=== PATIENT | male | born 1960 | race Caucasian/White ===

== ENCOUNTER 2018-02-21 10:07 | Emergency (ER) | payer BC, OTHER ==
[~2018-02-21] VITALS: Ht 182.9 cm; Wt 62.1 kg
[2018-02-21 10:23] VITALS: BP 116/82
[2018-02-21 10:58] LABS: Urine Bacteria NONE SEEN /hpf (None Seen); Urine Blood TRACE /uL (Negative); Urine Mucus FEW (None Seen); Urine WBC 2 /hpf (0 - 3)
[2018-02-21] MEDS ORDERED: DEXAMETHASONE SOD PHOS 10MG/1ML VIAL INJ IM ONE (13:15)
== END 2018-02-21 14:38 | disposition home or self-care (01) ==
LOC: ER 10:07
DX: S39.013A Strain of muscle, fascia and tendon of pelvis, initial encounter (principal); Z88.6 Allergy status to analgesic agent; X58.XXXA Exposure to other specified factors, initial encounter; Y93.89 Activity, other specified; Y99.8 Other external cause status; Y92.89 Other specified places as the place of occurrence of the external cause
CPT/HCPCS: 76870; 81001; 96372; 99285; J1100

== ENCOUNTER 2019-06-29 00:52 | Emergency (ER) | payer BC ==
[~2019-06-29] VITALS: Ht 182.9 cm; Wt 63.5 kg
[2019-06-29 01:31] LABS: Basophils # (auto) 0.1 uL; Basophils % (auto) 0.9 % (0.0-2.0); Eosinophils # (auto) 0.3 uL; Eosinophils % (auto) 2.6 % (0.0-7.0); Hematocrit 50.3 % (41.0-53.0); Hemoglobin 17.4 g/dL (13.5-17.5); Lymphocytes # (auto) 1.6 uL; Lymphocytes % (auto) 15.7 % (10.0-50.0); Mean Corpuscular Hemoglobin 33.5 pg (28.0-32.0); Mean Corpuscular Hgb Conc. 34.6 g/dL (32.0-36.0); Mean Corpuscular Volume 96.9 fL (80.0-100.0); Monocytes # (auto) 0.9 uL; Monocytes % (auto) 8.3 % (0.0-12.0); Neutrophils # (auto) 7.5 uL; Neutrophils % (auto) 72.5 % (37.0-80.0); Platelet Count (auto) 205 10^3/uL (140-450); Red Blood Cells 5.19 10^6/uL (4.5-5.90); Red Cell Distribution Width 13.3 % (11.8-14.3); White Blood Cell 10.3 10^3/uL (4.4-10.8)
[2019-06-29 01:46] LABS: INR 0.98 (0.9-1.15)
[2019-06-29 01:56] LABS: Albumin 3.5 g/dL (3.4-5.0); Anion Gap 6 (5-15); Blood Urea Nitrogen 22 mg/dL (7-18); Carbon Dioxide 25 mmol/L (21-32); Chloride 106 mmol/L (98-107); Glucose 97 mg/dL (74-106); Potassium 4.5 mmol/L (3.5-5.1); Sodium 137 mmol/L (136-145)
[2019-06-29 01:58] LABS: Alanine Aminotransferase 30 U/L (16-61); Aspartate Aminotransferase 23 U/L (15-37); GFR African American 93 mL/min; GFR Non-African American 77 mL/min
[2019-06-29 02:13] LABS: Alkaline Phosphatase 127 U/L (45-117); Bilirubin, Total 0.3 mg/dL (0.2-1.0); Total Protein 7.5 g/dL (6.4-8.2)
[2019-06-29] MEDS ORDERED: HYDROcodone-ACET 5/325MG TAB PO ONE (02:15)
[2019-06-29 03:20] VITALS: BP 110/70
== END 2019-06-29 03:19 | disposition home or self-care (01) ==
LOC: EDBD 00:52 → ER 00:55
DX: S20.211A Contusion of right front wall of thorax, initial encounter (principal); J44.9 Chronic obstructive pulmonary disease, unspecified; Z88.6 Allergy status to analgesic agent; X50.1XXA Overexertion from prolonged static or awkward postures, initial encounter; Y93.89 Activity, other specified; Y99.8 Other external cause status; Y92.89 Other specified places as the place of occurrence of the external cause
CPT/HCPCS: 36415; 71045; 80053; 83880; 84484; 85025; 85610; 85730; 93005

== ENCOUNTER 2024-06-20 17:33 | Inpatient (IN) | payer BC ==
[~2024-06-20] VITALS: Ht 180.3 cm; Wt 58.6 kg
--- NOTE | 2024-06-20 17:46 | ED.PDOC ---
SOB-HPI HPI Comments 63 year old male presents to the ED with a chief complaint of shortness of breath onset 1 day. Patient states he has been experiencing shortness of breath, cough, chest burning "discomfort", fever for the past day with no relief of symptoms. PMHx of COPD. Denies any headache, blurry vision, nausea, vomiting, diarrhea, abdominal pain. No other symptoms or modifying factors present at this time. Time Seen by MD: 17:40 Primary Care Provider: [facility] G[facility] Marmolejo notes: Medications, Allergies Information Source: Patient Mode of Arrival: Ambulatory Severity: Moderate Timing: Days Duration: Since onset Context: At Rest PE Risk Factors: None History of: COPD Prehospital treatment: None Modifying Factors: Nothing Associated Signs and Symptoms: Fever, Cough Radiation: No Radiation Past Medical History PAST MEDICAL HISTORY: COPD Surgical History: Denies all surgeries Family History Family History: Reviewed,noncontributory to illness Social History Smoker: Cigarettes Alcohol: Denies ETOH Use Drugs: Denies Drug Use Lives In: Home Constitutional: reports: fever; denies: chills, diaphoresis, fatigue, malaise, sweats, weakness, others EENTM: denies: blurred vision, double vision, ear bleeding, ear discharge, ear drainage, ear pain, ear ringing, eye pain, eye redness, hearing loss, mouth pain, mouth swelling, nasal discharge, nose bleeding, nose congestion, nose pain, photophobia, tearing, throat pain, throat swelling, voice changes, others Respiratory: reports: cough, shortness of breath; denies: hemoptysis, orthopnea, SOB at rest, SOB with excertion, stridor, wheezing, others Cardiovascular: reports: chest pain; denies: dizzy spells, diaphoresis, Dyspnea on exertion, edema, irregular heart beat, left arm pain, lightheadedness, palpitations, PND, syncope, others Gastrointestinal: denies: abdomen distended, abdominal pain, blood streaked bowels, constipated, diarrhea, dysphagia, difficulty swallowing, hematemesis, melena, nausea, poor appetite, poor fluid intake, rectal bleeding, rectal pain, vomiting, others Genitourinary: denies: burning, dysuria, flank pain, frequency, hematuria, incontinence, penile discharge, penile sore, pain, testicle pain, testicle swelling, urgency, others Neurological: denies: dizziness, fainting, headache, left sided numbness, left sided weakness, numbness, paresthesia, pre-existing deficit, right sided numbness, right sided weakness, seizure, speech problems, tingling, tremors, weakness, others Musculoskeletal: denies: back pain, gout, joint pain, joint swelling, muscle pain, muscle stiffness, neck pain, others Integumetry: denies: bruises, change in color, change in hair/nails, dryness, laceration, lesions, lumps, rash, wounds, others Allergic/Immunocompromised: denies: Difficulty Healing, Frequent Infections, Hives, Itching, others Hematologic/Lymphatic: denies: anemia, blood clots, easy bleeding, easy bruising, swollen glands, others Endocrine: denies: excessive hunger, excessive sweating, excessive thirst, excessive urination, flushing, intolerance to cold, intolerance to heat, unexplained weight gain, unexplained weight loss, others Psychiatric: denies: anxiety, bipolar disorder, depression, hopeless, panic disorder, schizophrenia, sleepless, suicidal, others All Other Systems: Reviewed and Negative Physical Exam General Appearance: No Apparent Distress, Normal HEENT: Normal ENT Inspection, Pharynx Normal, TMs Normal Neck: Full Range of Motion, Non-Tender, Normal, Normal Inspection Respiratory: Chest Non-Tender, Lungs Clear, No Accessory Muscle Use, No Respiratory Distress, Normal Breath Sounds Cardiovascular: No Edema, No JVD, No Murmur, No Gallop, Normal Peripheral Pulses, Regular Rate/Rhythm Breast Exam: Deferred Gastrointestinal: No Organomegaly, Non Tender, No Pulsatile Mass, Normal Bowel Sounds, Soft Genitalia: Deferred Pelvic: Deferred Rectal: Deferred Extremities: No calf tenderness, Normal capillary refill, Normal inspection, Normal range of motion, Non-tender, No pedal edema Musculoskeletal : Apperance: Normal Neurologic: Alert, client resolution specialist II-XII nml as Tested, No Motor Deficits, Normal Affect, Normal Mood, No Sensory Deficits Cerebellar Function: Normal Reflexes: Normal Skin: Dry, Normal Color, Warm Lymphatic: No Adenopathy EKG EKG : Pulse Rate (adult): 79 [place]: Normal Cardiac Rhythm: NSR Block: None Hypertrophy: None ST: Nonsp Was a procedure done? Was a procedure done?: No Differential Dx Differential Diagnosis: Anxiety, Asthma, Bronchitis, CHF, COPD, Dysrhythmia, Hyperventilation, Myocardial infarction, Panic Attack, Pneumonia, Pneumothorax, Pulmonary Embolism, Respiratory Distress, URI X-Ray, Labs, Meds, VS Vital Signs Date Time Temp Pulse Resp B/P (MAP) Pulse Ox O2 Delivery O2 Flow Rate FiO2 06/20/24 18:52 Room Air* 0 21 06/20/24 18:52 98.6 91 28 144/101 (115) 91 98.6 06/20/24 17:50 96 06/20/24 17:46 99.4 96 20 118/59 (78) 93 Lab Test 06/20/24 19:00 06/20/24 17:53 Range/Units Troponin I High Sensitivity 5 4 </=54 ng/L White Blood Count 6.0 4.4-10.8 10^3/uL Red Blood Count 4.96 4.5-5.90 10^6/uL Hemoglobin 16.2 13.5-17.5 g/dL Hematocrit 48.1 41.0-53.0 % Mean Corpuscular Volume 96.9 80.0-100.0 fL Mean Corpuscular Hemoglobin 32.7 H 28.0-32.0 pg Mean Corpuscular Hemoglobin Concent 33.8 32.0-36.0 g/dL Red Cell Distribution Width 13.6 11.8-14.3 % Platelet Count 159 140-450 10^3/uL Mean Platelet Volume 7.3 6.9-10.8 fL Neutrophils (%) (Auto) 82.4 H 37.0-80.0 % Lymphocytes (%) (Auto) 5.8 L 10.0-50.0 % Monocytes (%) (Auto) 11.5 0.0-12.0 % Eosinophils (%) (Auto) 0.0 0.0-7.0 % Basophils (%) (Auto) 0.3 0.0-2.0 % Neutrophils # (Auto) 5.0 1.6-8.6 10 ^3/uL Lymphocytes # (Auto) 0.4 0.4-5.4 10 ^3/uL Monocytes # (Auto) 0.7 0-1.3 10 ^3/uL Eosinophils # (Auto) 0 0-0.8 10 ^3/uL Basophils # (Auto) 0 0-0.2 10 ^3/uL Nucleated Red Blood Cells 0.0 % Sodium Level 140 136-145 mmol/L Potassium Level 4.5 3.5-5.1 mmol/L Chloride Level 103 98-107 mmol/L Carbon Dioxide Level 27 20-31 mmol/L Anion Gap 10 5-15 Blood Urea Nitrogen 22 9-23 mg/dL Creatinine 0.93 0.700-1.30 mg/dL Glomerular Filtration Rate Calc 92 >90 mL/min BUN/Creatinine Ratio 23.7 H 10.0-20.0 Serum Glucose 101 74-106 mg/dL Calcium Level 9.7 8.7-10.4 mg/dL Time of 1ST Reevaluation: 18:10 Reevaluation 1ST: Unchanged Patient Education/Counseling: Diagnosis, Treatment, Prognosis, Need For Follow Up Family Education/Counseling: Diagnosis, Treatment, Prognosis, Need For Follow Up, No Family Present Additional Information pt has pneumonia, with his copd exacerbation, tobacco dependence and chest pain, which may be unstable angina. he will be admitted for treatment and evaluation of the above Departure 1 Departure Time of Disposition: 20:24 Impression: Primary Impression: Pneumonia Qualified Codes: J18.9 - Pneumonia, unspecified organism Additional Impressions: COPD exacerbation Tobacco abuse Chest pain Qualified Codes: I20.89 - Other forms of angina pectoris Unstable angina Disposition: ADMITTED INPATIENT Admit to: Tele Condition: Stable Discharged With: Self, Relative Critical Care Note Critical Care Time?: Yes (55 min-critical care time only) Critical care comment: due to concerns for deterioration of patient's condition, the care required my highest level of attention and readiness. i assessed the patient's condition, reviewed relevant documents, communicated with medical personnel, ordered the proper tests and treatments, reassessed for results and response to treatments, spoke to family and consultants and formulated a plan of care Stability Stability form required: No Heart Score Heart Score: Heart Score Response (Comments) Value History Moderate Suspicious 1 EKG Repolarization Disturb 1 Age 45-64 1 Risk Factors 1 or 2 risk factors 1 Troponin Normal limit 0 Total 4 I personally scribed for TAVARES DOMINGUEZ MD ([email or web address]) on 06/20/24 at 17:46. Electronically submitted by Tiffanie Turner ([email or web address]). TAVARES DOMINGUEZ MD Jun 20, 2024 17:46
--- NOTE | 2024-06-20 17:52 | ECG ---
[facility] Test Date: 2024-06-20 Test Time: 17:50:57 Pat Name: ANGY CUELLAR Department: ER Room: Gender: M It Architecture Analyst: NUPUR : 1960 Requested By: TAVARES DOMINGUEZ Order Number: [id number] Reading MD: Measurements Intervals [place] Rate: 96 P: 84 IA: 160 QRS: -63 QRSD: 100 T: 77 QT: 336 QTc: 425 Interpretive Statements Sinus rhythm Ventricular premature complex Probable left atrial enlargement Left axis deviation Anterior infarct, old Please click the below link to view image of tracing.
[2024-06-20 18:10] LABS: Basophils # (auto) 0 10 ^3/uL (0-0.2); Basophils % (auto) 0.3 % (0.0-2.0); Eosinophils # (auto) 0 10 ^3/uL (0-0.8); Hematocrit 48.1 % (41.0-53.0); Hemoglobin 16.2 g/dL (13.5-17.5); Lymphocytes # (auto) 0.4 10 ^3/uL (0.4-5.4); Lymphocytes % (auto) 5.8 % (10.0-50.0); Mean Corpuscular Hemoglobin 32.7 pg (28.0-32.0); Mean Corpuscular Hgb Conc. 33.8 g/dL (32.0-36.0); Mean Corpuscular Volume 96.9 fL (80.0-100.0); Monocytes # (auto) 0.7 10 ^3/uL (0-1.3); Monocytes % (auto) 11.5 % (0.0-12.0); Neutrophils % (auto) 82.4 % (37.0-80.0); Platelet Count (auto) 159 10^3/uL (140-450); Red Blood Cells 4.96 10^6/uL (4.5-5.90); Red Cell Distribution Width 13.6 % (11.8-14.3)
[2024-06-20 18:22] LABS: Chloride 103 mmol/L (98-107); Potassium 4.5 mmol/L (3.5-5.1); Sodium 140 mmol/L (136-145)
[2024-06-20 18:23] LABS: Anion Gap 10 (5-15); Carbon Dioxide 27 mmol/L (20-31)
[2024-06-20 18:24] LABS: Calcium 9.7 mg/dL (8.7-10.4)
--- NOTE | 2024-06-20 18:27 | DVH ---
CHEST RADIOGRAPH Indication: cough, sob Technique: Single frontal view of the chest was obtained Comparison: CHEST PORTABLE on DOS: 06/29/19 FINDINGS: Lines and Tubes: None Lungs: Increased bilateral perihilar infiltrates with development of a right lower lobe infiltrate. Pleura: No effusion. No pneumothorax. Cardiomediastinal contours: Unremarkable Bones: No acute osseous abnormality. IMPRESSION: 1. Bilateral perihilar infiltrate and right lower lobe infiltrate.
[2024-06-20 18:28] LABS: Glucose 101 mg/dL (74-106)
[2024-06-20 18:29] LABS: BUN/Creatinine Ratio 23.7 (10.0-20.0); Blood Urea Nitrogen 22 mg/dL (9-23)
[2024-06-20] MEDS: AZITHROMYCIN 500MG/ 250ML 250 ML IV ONE (20:30)
[2024-06-20] MEDS: cefTRIAXone SOD 1,000 MG VL IM ONE (20:30)
[2024-06-20] MEDS: ALBUTEROL SULF 2.5 MG/0.5ML(0.5%) NEB SOLN NEB ONE (20:30)
[2024-06-20] MEDS: ASPirin 325 MG TAB PO ONE (20:30)
[2024-06-20] MEDS: IPRATROPIUM BROM 0.5 MG/2.5ML INH SOL NEB ONE (20:30)
[2024-06-20] MEDS: ALBUTEROL SULF 2.5 MG/0.5ML(0.5%) NEB SOLN ONE (20:41)
[2024-06-20] MEDS: IPRATROPIUM BROM 0.5 MG/2.5ML INH SOL ONE (20:41)
[2024-06-20 20:42] VITALS: O2SAT 94
[2024-06-20] MEDS ORDERED: DOCUSATE SOD 100 MG CAP PO PRN (20:45)
[2024-06-20] MEDS ORDERED: ACETAMINOPHEN 325 MG TAB PO PRN (20:45)
[2024-06-20] MEDS ORDERED: ONDANSETRON HCL 4 MG/2 ML VIAL IV PRN (20:45)
[2024-06-20 21:05] VITALS: BP 144/101; PULSE 83; RESP 19; O2SAT 94
--- NOTE | 2024-06-20 21:21 | DVHHP2 ---
History of Present Illness Reason for Visit: Pneumonia, unspecified organism History of Present Illness The patient is a 63-year-old male with past medical history of COPD who presented to [facility] ED with complaint of shortness of breaths. Patient reports symptoms progressively get worse with cough, chest pain, increased work of breathing, getting worse that prompted this visit. Patient was seen and evaluated in the ED, laboratory data shows WBC 6.0, platelets 159, sodium 140, potassium 4.5, BUN 20, creatinine 0.93, GFR 92, glucose 101, troponin 4, blood pressure 144/101, pulse 79, temperature 98.6 F, O2 saturation 91% on oxygen. Chest x-ray revealing bilateral perihilar infiltrate and right lower lobe infiltrate. Patient was started on IV antibiotic regimen azithromycin, please see medication orders section in the computer. On my assessment, patient denied chest pain, no headache, no dizziness, no diaphoresis, currently on oxygen, no nausea, no vomiting, no fever, no chills. Patient was admitted for further evaluation and medical management. Past Medical History COPD Past Surgical History Denies all surgeries Family History Reviewed, noncontributory to the management of this case. Past Social History The patient lives at home, denies smoking, alcohol or illicit drugs abuse. Review of Systems Constitutional: Yes: Weakness; No: Fever, Chills, Sweats, Malaise, Other Eyes: No: Pain, Vision change, Conjunctivae inflammation, Eyelid inflammation, Other, Redness ENT: No: Ear pain, Ear discharge, Nose pain, Nose discharge, Nose congestion, Mouth pain, Mouth swelling, Throat pain, Throat swelling, Other Respiratory: Cough, Shortness of breath, SOB with excertion, Other (SOB at rest); No: Dry, Wheezing, Hemoptysis, Pleuritic Pain, Sputum, Wheezing Cardiovascular: Chest Pain; No: Palpitations, Orthopnea, Paroxysmal Noc. Dyspnea, Edema, Lt Headedness, Other Gastrointestinal: No: Nausea, Vomiting, Abdominal Pain, Diarrhea, Constipation, Melena, Hematochezia, Other Genitourinary: No Dysuria, No Frequency, No Incontinence, No Hematuria, No Retention, No Other Musculoskeletal: No: other, neck pain, shoulder pain, arm pain, back pain, hand pain, leg pain, foot pain Skin: No: Rash, Lesions, Jaundice, Bruising, Other Neurological: No: Weakness, Numbness, Incoordination, Change in speech, Confusion, Seizures, Other Allergies: Coded Allergies: Codeine (Verified Allergy, Unknown, 02/21/18) Medications Current Medications Medications Dose Ordered Sig/Steve Route Start Time Stop Time Status Last Admin Dose Admin Aspirin 81 mg DAILY PO 06/21/24 10:00 Albuterol 2.5 mg Q4HPRN PRN NEB 06/20/24 20:45 Ipratropium [place] 0.5 mg Q4HPRN PRN NEB 06/20/24 20:45 Azithromycin 250 ml @ 125 mls/hr DAILY IV 06/21/24 10:00 Methylprednisolone Sodium Succinate 40 mg Q8HR IV 06/20/24 22:00 Famotidine 20 mg Q12HR IV 06/20/24 22:00 Sodium Chloride 10 ml Q8HR IV 06/20/24 22:00 Ondansetron HCl 4 mg Q4HP PRN IV 06/20/24 20:45 Docusate Sodium 100 mg BIDPRN PRN PO 06/20/24 20:45 Acetaminophen 650 mg Q6HP PRN PO 06/20/24 20:45 Exam Vital Signs Vital Signs Date Time Temp Pulse Resp B/P (MAP) Pulse Ox O2 Delivery O2 Flow Rate FiO2 06/20/24 21:05 83 19 144/101 94 0.0 21 06/20/24 20:42 Room Air* 06/20/24 18:52 98.6 98.6 General Appearance: Alert, Oriented X3, Cooperative, No acute distress HEENT: Atraumatic, PERRLA, EOMI, Mucous membr. moist/pink Respiratory: Clear to auscultation, Normal air movement Cardiovascular: Regular rate, Normal S1, Normal S2, No murmurs Abdominal: Normal bowel sounds, Soft, No tenderness, No hepatospenomegaly, No masses Extremities: No clubbing, No cyanosis, No edema, Normal pulses, No tenderness/swelling Skin: No rashes, No breakdown, No significant lesion Neuro: Normal speech, Normal tone, Sensation intact, Cranial nerves 3-12 NL, Reflexes 2+, Other (Generalized weakness) Psych/Mental Status: Mental status NL, Mood NL Labs/Xrays Labs Test 06/20/24 19:00 06/20/24 17:53 Range/Units Troponin I High Sensitivity 5 </=54 ng/L White Blood Count 6.0 4.4-10.8 10^3/uL Red Blood Count 4.96 4.5-5.90 10^6/uL Hemoglobin 16.2 13.5-17.5 g/dL Hematocrit 48.1 41.0-53.0 % Mean Corpuscular Volume 96.9 80.0-100.0 fL Mean Corpuscular Hemoglobin 32.7 H 28.0-32.0 pg Mean Corpuscular Hemoglobin Concent 33.8 32.0-36.0 g/dL Red Cell Distribution Width 13.6 11.8-14.3 % Platelet Count 159 140-450 10^3/uL Mean Platelet Volume 7.3 6.9-10.8 fL Neutrophils (%) (Auto) 82.4 H 37.0-80.0 % Lymphocytes (%) (Auto) 5.8 L 10.0-50.0 % Monocytes (%) (Auto) 11.5 0.0-12.0 % Eosinophils (%) (Auto) 0.0 0.0-7.0 % Basophils (%) (Auto) 0.3 0.0-2.0 % Neutrophils # (Auto) 5.0 1.6-8.6 10 ^3/uL Lymphocytes # (Auto) 0.4 0.4-5.4 10 ^3/uL Monocytes # (Auto) 0.7 0-1.3 10 ^3/uL Eosinophils # (Auto) 0 0-0.8 10 ^3/uL Basophils # (Auto) 0 0-0.2 10 ^3/uL Nucleated Red Blood Cells 0.0 % Sodium Level 140 136-145 mmol/L Potassium Level 4.5 3.5-5.1 mmol/L Chloride Level 103 98-107 mmol/L Carbon Dioxide Level 27 20-31 mmol/L Anion Gap 10 5-15 Blood Urea Nitrogen 22 9-23 mg/dL Creatinine 0.93 0.700-1.30 mg/dL Glomerular Filtration Rate Calc 92 >90 mL/min BUN/Creatinine Ratio 23.7 H 10.0-20.0 Serum Glucose 101 74-106 mg/dL Calcium Level 9.7 8.7-10.4 mg/dL PATIENT: ANGY CUELLAR ACCT: [id number] UNIT: [id number] : 1960 LOC: ER ROOM / BED:/ AGE / SEX: 63 / M ADM STATUS: REG ER SERVICE [id number] ORDERING PHYSICIAN: TAVARES DOMINGUEZ MD PROCEDURE(s): CXRP - CHEST PORTABLE REASON: cough, sob ORDER NUMBER(s): [id number], ACCESSION NUMBER(s): [id number] CHEST RADIOGRAPH Indication: cough, sob Technique: Single frontal view of the chest was obtained Comparison: CHEST PORTABLE on DOS: 06/29/19 FINDINGS: Lines and Tubes: None Lungs: Increased bilateral perihilar infiltrates with development of a right lower lobe infiltrate. Pleura: No effusion. No pneumothorax. Cardiomediastinal contours: Unremarkable Bones: No acute osseous abnormality. IMPRESSION: 1. Bilateral perihilar infiltrate and right lower lobe infiltrate. Assessment/Plan Assessment/Plan Pneumonia, unspecified organism Unstable angina Tobacco abuse Chest pain COPD with acute exacerbation Other forms of angina pectoris Plan 1. Admit to telemetry unit 2. Breathing treatment 3. Pain control management 4. Management of fluids and electrolytes 5. Consultation for hospitalist 6. Diagnostic tests chest x-ray 7. DVT prophylaxis-on aspirin 8. Repeat labs CBC, CMP in a.m. 9. Continue with current medical management 10. Treatment plan discussed with patient and RN. Patient verbalized understanding. Plan discussed with: Patient, Other (RN) My Orders Orders - ALMA ROSA CALHOUN DNP Procedure Category Date Status Time Aspirin Tablet PHA 06/21/24 In Process 10:00 Albuterol Medneb PHA 06/20/24 In Process (Ventolin Medneb) 20:45 Ipratropium Medneb PHA 06/20/24 In Process (Atrovent Medneb) 20:45 Azithromycin 500mg/ PHA 06/21/24 In Process 250ml (Zithromax 50 10:00 Methylprednisolone PHA 06/20/24 In Process Sod Succ (Solu Medrol 22:00 Famotidine Injection PHA 06/20/24 In Process (Pepcid Injection) 22:00 Allergies WILBERTO 06/20/24 In Process 20:43 Code Status CODE 06/20/24 Transmitted 20:43 Sodium Chloride Lock PHA 06/20/24 In Process (Saline Lock Ns) 22:00 Oxygen Per Hour RT 06/20/24 Transmitted 20:43 Ondansetron Hcl PHA 06/20/24 In Process (Zofran) 20:45 Docusate Sodium PHA 06/20/24 In Process Capsule (Colace 20:45 Complete Blood Count LAB 06/21/24 Verified 04:00 Comprehensive LAB 06/21/24 Verified Metabolic Panel 04:00 Cardiac DIET 06/21/24 Transmitted Diet-2gna,Lofat,Lochol Breakfast Condition: Serious WILBERTO 06/20/24 In Process 20:43 Acetaminophen Tablet PHA 06/20/24 In Process (Tylenol Tablet) 20:45 Bedrest With Bathroom WILBERTO 06/20/24 In Process Privileg 20:43 Sequential WILBERTO 06/20/24 In Process Compression Device Problem List: (1) Pneumonia, unspecified organism (2) Chest pain (3) Unstable angina (4) Tobacco abuse (5) COPD with acute exacerbation (6) Other forms of angina pectoris Date of Service: Jun 20, 2024 Billing Provider: ALMA ROSA CALHOUN DNP Common Visit Codes: [id number] INP/OBS CARE (HIGH) ALMA ROSA CALHOUN DNP Jun 20, 2024 21:21
[2024-06-20] MEDS ORDERED: NITROGLYCERIN 0.4 MG SL TAB SL PRN (21:30)
[2024-06-20] MEDS ORDERED: MORPHINE SULFATE INJ 2 MG/ml SYRG IV PRN (21:30)
[2024-06-20] MEDS: FAMOTIDINE (10MG/ML) 2ML VL IV SCH (22:00)
[2024-06-20] MEDS: methylPREDNISolone SOD SUCC 40 MG/ML VL IV SCH (22:00)
[2024-06-20] MEDS: SODIUM CHLOR 0.9% PF (SALINE LOCK) 10ML VIAL/SYR IV SCH (22:00)
[2024-06-21] VITALS (13 sets, daily range): BP systolic 92–137; BP diastolic 57–78; PULSE 64–89; RESP 18–91; TEMP 97.9–99.2; O2SAT 90–98
[2024-06-21] MEDS: ASPirin 81 mg TAB PO SCH (02:37)
[2024-06-21 04:27] LABS: Basophils # (auto) 0 10 ^3/uL (0-0.2); Basophils % (auto) 0.4 % (0.0-2.0); Eosinophils # (auto) 0 10 ^3/uL (0-0.8); Eosinophils % (auto) 0.1 % (0.0-7.0); Hematocrit 47.4 % (41.0-53.0); Hemoglobin 15.5 g/dL (13.5-17.5); Lymphocytes # (auto) 0.1 10 ^3/uL (0.4-5.4); Lymphocytes % (auto) 2.7 % (10.0-50.0); Mean Corpuscular Hemoglobin 31.6 pg (28.0-32.0); Mean Corpuscular Hgb Conc. 32.7 g/dL (32.0-36.0); Mean Corpuscular Volume 96.8 fL (80.0-100.0); Monocytes # (auto) 0.2 10 ^3/uL (0-1.3); Monocytes % (auto) 3.7 % (0.0-12.0); Neutrophils # (auto) 3.8 10 ^3/uL (1.6-8.6); Neutrophils % (auto) 93.1 % (37.0-80.0); Platelet Count (auto) 147 10^3/uL (140-450); Red Cell Distribution Width 13.5 % (11.8-14.3); White Blood Cell 4.1 10^3/uL (4.4-10.8)
[2024-06-21 04:42] LABS: Alanine Aminotransferase 23 U/L (7-40); Alkaline Phosphatase 90 U/L (46-116); Anion Gap 11 (5-15); Aspartate Aminotransferase 28 U/L (13-40); BUN/Creatinine Ratio 21.1 (10.0-20.0); Calcium 9.1 mg/dL (8.7-10.4); Carbon Dioxide 22 mmol/L (20-31); Chloride 103 mmol/L (98-107); Potassium 4.1 mmol/L (3.5-5.1); Sodium 136 mmol/L (136-145)
[2024-06-21 04:43] LABS: Bilirubin, Total 0.3 mg/dL (0.2-1.0)
[2024-06-21 04:48] LABS: Blood Urea Nitrogen 28 mg/dL (9-23); Glucose 262 mg/dL (74-106); Total Protein 5.6 g/dL (5.7-8.2)
[2024-06-21] MEDS: AZITHROMYCIN 500MG/ 250ML 250 ML IV SCH (09:31)
[2024-06-21] MEDS: IPRATROPIUM BROM 0.5 MG/2.5ML INH SOL NEB PRN (16:41)
[2024-06-21] MEDS: ALBUTEROL SULF 2.5 MG/0.5ML(0.5%) NEB SOLN NEB PRN (16:41)
--- NOTE | 2024-06-21 19:44 | DVHPN2 ---
Subjective c/o cogh and dyspnea on exrtion/no dyapnea at rest Changes from previous H/P or p: No Changes Eyes: No Pain, No Vision change, No Conjunctivae inflammation, No Eyelid inflammation, No Other, No Redness ENT: No Ear pain, No Ear discharge, No Nose pain, No Nose discharge, No Nose congestion, No Mouth pain, No Mouth swelling, No Throat pain, No Throat swelling, No Other Cardiovascular: Chest Pain; No Palpitations, No Orthopnea, No Paroxysmal Noc. Dyspnea, No Edema, No Lt Headedness, No Other Respiratory: Cough; No Dry; Shortness of breath, SOB with excertion; No Wheezing, No Hemoptysis, No Pleuritic Pain, No Sputum; Other (SOB at rest) Gastrointestinal: No Nausea, No Vomiting, No Abdominal Pain, No Diarrhea, No Constipation, No Melena, No Hematochezia, No Other Genitourinary: No Dysuria, No Frequency, No Incontinence, No Hematuria, No Retention, No Other Musculoskeletal: No other, No neck pain, No shoulder pain, No arm pain, No back pain, No hand pain, No leg pain, No foot pain Skin: No Rash, No Lesions, No Jaundice, No Bruising, No Other Objective Vitals Vital Signs Date Time Temp Pulse Resp B/P (MAP) Pulse Ox O2 Delivery O2 Flow Rate FiO2 06/21/24 17:00 99.0 88 20 106/68 (81) 97 99.0 06/21/24 16:41 Room Air 0.0 06/21/24 16:41 21 General Appearance: Alert, Oriented X3, Cooperative, No acute distress Lungs: Clear to auscultation Cardiovascular: Regular rate, Normal S2 Abdomen: Normal bowel sounds, No tenderness, No hepatospenomegaly Musculoskeletal: Normal sensory function Extremities: No edema Neuro: Normal gait, Normal speech, Strength at 5/5 X4 ext, Normal tone, S ensation intact, Cranial nerves 3-12 NL, Reflexes 2+, Other Psych/Mental Status: Mental status NL, Mood NL Medications Current Medications Medications Dose Ordered Sig/Steve Route Start Time Stop Time Status Last Admin Dose Admin Aspirin 81 mg DAILY PO 06/21/24 10:00 06/21/24 02:37 81 MG Albuterol 2.5 mg Q4HPRN PRN NEB 06/20/24 20:45 06/21/24 16:41 2.5 MG Ipratropium [place] 0.5 mg Q4HPRN PRN NEB 06/20/24 20:45 06/21/24 16:41 0.5 MG Azithromycin 250 ml @ 125 mls/hr DAILY IV 06/21/24 10:00 06/21/24 09:31 125 MLS/HR Methylprednisolone Sodium Succinate 40 mg Q8HR IV 06/20/24 22:00 06/21/24 13:25 40 MG Sodium Chloride 10 ml Q8HR IV 06/20/24 22:00 06/21/24 13:25 10 ML Ondansetron HCl 4 mg Q4HP PRN IV 06/20/24 20:45 Docusate Sodium 100 mg BIDPRN PRN PO 06/20/24 20:45 Acetaminophen 650 mg Q6HP PRN PO 06/20/24 20:45 Famotidine 20 mg DAILY PO 06/22/24 10:00 Laboratory Results Laboratory Tests 06/21/24 03:23 Chemistry Test 06/21/24 03:23 Albumin 4.0 g/dL (3.2-4.8) Calcium Level 9.1 mg/dL (8.7-10.4) Total Protein 5.6 g/dL (5.7-8.2) L LFT Test 06/21/24 03:23 Alanine Aminotransferase (ALT) 23 U/L (7-40) Alkaline Phosphatase 90 U/L (46-116) Aspartate Amino Transferase (AST) 28 U/L (13-40) Total Bilirubin 0.3 mg/dL (0.2-1.0) Assessment/Plan Assessment/Plan community acquired pneumonia-on rocephlin/zithromax tobacco abuse-no signs of withdrawl- offered patch/declines copd exacerbation-on steroids/nebulizers Plan discussed with: Patient, Other My Orders Orders - LILO RIVERA MD Procedure Category Date Status Time Famotidine Tablet PHA 06/22/24 In Process (Pepcid Tablet) 10:00 Date of Service: Jun 21, 2024 Billing Provider: LILO RIVERA MD Common Visit Codes: [id number] INP/OBS CARE(MOD) LILO RIVERA MD Jun 21, 2024 19:43
[2024-06-21] MEDS: cefTRIAXone 1GM/50ML D5W 50 ML IV ONE (19:45)
[2024-06-22] VITALS (11 sets, daily range): BP systolic 90–110; BP diastolic 55–64; PULSE 56–79; RESP 14–20; TEMP 97.8–98; O2SAT 79–98
[2024-06-22] MEDS: cefTRIAXone 1GM/50ML D5W 50 ML IV SCH (08:40)
[2024-06-22] MEDS ORDERED: ALBUAER3 IN (09:23)
[2024-06-22] MEDS ORDERED: GABA-1250 PO (09:23)
[2024-06-22] MEDS ORDERED: FLUT1AER3 IN (09:24)
[2024-06-22] MEDS: FAMOTIDINE 20 MG TAB PO SCH (09:31)
--- NOTE | 2024-06-22 15:17 | DVHPN2 ---
Subjective Still having some shortness of breath and productive cough of green sputum Changes from previous H/P or p: Changes Eyes: No Pain, No Vision change, No Conjunctivae inflammation, No Eyelid inflammation, No Other, No Redness ENT: No Ear pain, No Ear discharge, No Nose pain, No Nose discharge, No Nose congestion, No Mouth pain, No Mouth swelling, No Throat pain, No Throat swelling, No Other Cardiovascular: Chest Pain Respiratory: Cough, Shortness of breath, SOB with excertion, Other Gastrointestinal: No Nausea, No Vomiting, No Abdominal Pain, No Diarrhea, No Constipation, No Melena, No Hematochezia, No Other Genitourinary: No Dysuria, No Frequency, No Incontinence, No Hematuria, No Retention, No Other Musculoskeletal: No other, No neck pain, No shoulder pain, No arm pain, No back pain, No hand pain, No leg pain, No foot pain Skin: No Rash, No Lesions, No Jaundice, No Bruising, No Other Objective Vitals Vital Signs Date Time Temp Pulse Resp B/P (MAP) Pulse Ox O2 Delivery O2 Flow Rate FiO2 06/22/24 13:00 97.8 72 17 103/63 (76 91 97.8 06/22/24 10:01 Room Air* 0 21 Intake/Output Intake and Output 06/22/24 07:00 Intake Total 450 ml Balance 450 ml Intake Oral 200 ml IV Total 250 ml # Voids 5 General Appearance: Alert, Oriented X3, Cooperative, No acute distress Lungs: Clear to auscultation Cardiovascular: Regular rate, Normal S2 Abdomen: Normal bowel sounds, No tenderness, No hepatospenomegaly Musculoskeletal: Normal sensory function Extremities: No edema Neuro: Normal gait, Normal speech, Strength at 5/5 X4 ext, Normal tone, S ensation intact, Cranial nerves 3-12 NL, Reflexes 2+, Other Psych/Mental Status: Mental status NL, Mood NL Medications Current Medications Medications Dose Ordered Sig/Steve Route Start Time Stop Time Status Last Admin Dose Admin Aspirin 81 mg DAILY PO 06/21/24 10:00 06/22/24 09:31 81 MG Albuterol 2.5 mg Q4HPRN PRN NEB 06/20/24 20:45 06/21/24 16:41 2.5 MG Ipratropium [place] 0.5 mg Q4HPRN PRN NEB 06/20/24 20:45 06/21/24 16:41 0.5 MG Azithromycin 250 ml @ 125 mls/hr DAILY IV 06/21/24 10:00 06/22/24 09:31 125 MLS/HR Methylprednisolone Sodium Succinate 40 mg Q8HR IV 06/20/24 22:00 06/22/24 05:22 40 MG Sodium Chloride 10 ml Q8HR IV 06/20/24 22:00 06/22/24 13:56 10 ML Ondansetron HCl 4 mg Q4HP PRN IV 06/20/24 20:45 Docusate Sodium 100 mg BIDPRN PRN PO 06/20/24 20:45 Acetaminophen 650 mg Q6HP PRN PO 06/20/24 20:45 Famotidine 20 mg DAILY PO 06/22/24 10:00 06/22/24 09:31 20 MG Ceftriaxone Sodium 50 ml @ 100 mls/hr DAILY@09 IV 06/22/24 09:00 06/22/24 08:40 100 MLS/HR Laboratory Results Laboratory Tests 06/21/24 03:23 Assessment/Plan Assessment/Plan Right lower lobe pneumonia Bilateral pneumonia COPD exacerbation Acute hypoxic respiratory failure Tobacco smoking Acute kidney injury due to vasomotor nephropathy Leukopenia Plan Continue IV antibiotics Add IV fluids since his creatinine went up today Get a sputum sample for culture and sensitivity Continue med neb treatments Oxygen as needed IV steroids Check the COVID and influenza Monitor closely Full code Advance directives discussed for 20 minutes The rest of the management will depend on the hospital Plan discussed with: Patient Date of Service: Jun 22, 2024 Billing Provider: ELENA MCKINNON MD Common Visit Codes: [id number] INP/OBS CARE(HIGH) Secondary Visit Codes: [id number] CARE PLAN 30 MINUTES ELENA MCKINNON MD Jun 22, 2024 15:16
[2024-06-22] MEDS: SODIUM CHLORIDE 0.9% 1,000 ML IV SCH (15:46)
[2024-06-23] VITALS (10 sets, daily range): BP systolic 94–102; BP diastolic 57–61; PULSE 51–64; RESP 18; TEMP 36.6; O2SAT 93–98
[2024-06-23 07:35] LABS: Basophils # (auto) 0 10 ^3/uL (0-0.2); Eosinophils # (auto) 0 10 ^3/uL (0-0.8); Hematocrit 46.1 % (41.0-53.0); Hemoglobin 15.2 g/dL (13.5-17.5); Lymphocytes # (auto) 0.3 10 ^3/uL (0.4-5.4); Lymphocytes % (auto) 3.1 % (10.0-50.0); Mean Corpuscular Hemoglobin 31.7 pg (28.0-32.0); Mean Corpuscular Volume 96.1 fL (80.0-100.0); Monocytes # (auto) 0.5 10 ^3/uL (0-1.3); Neutrophils # (auto) 8.6 10 ^3/uL (1.6-8.6); Neutrophils % (auto) 91.9 % (37.0-80.0); Nucleated Red Blood Cells % 0.1 %; Platelet Count (auto) 158 10^3/uL (140-450); Red Cell Distribution Width 13.3 % (11.8-14.3); White Blood Cell 9.3 10^3/uL (4.4-10.8)
[2024-06-23 07:47] LABS: Alanine Aminotransferase 33 U/L (7-40); Albumin 3.8 g/dL (3.2-4.8); Alkaline Phosphatase 79 U/L (46-116); Anion Gap 8 (5-15); Aspartate Aminotransferase 22 U/L (13-40); Carbon Dioxide 28 mmol/L (20-31); Chloride 104 mmol/L (98-107); Potassium 4.6 mmol/L (3.5-5.1); Sodium 140 mmol/L (136-145)
[2024-06-23 07:48] LABS: BUN/Creatinine Ratio 29.9 (10.0-20.0); Magnesium 2.2 mg/dL (1.6-2.6)
[2024-06-23 07:50] LABS: Bilirubin, Total 0.4 mg/dL (0.2-1.0)
[2024-06-23 07:55] LABS: Blood Urea Nitrogen 26 mg/dL (9-23); Glucose 121 mg/dL (74-106); Total Protein 5.4 g/dL (5.7-8.2)
[2024-06-23 07:58] LABS: COVID19 ANTIGEN SOFIA FIA NEGATIVE (NEGATIVE)
[2024-06-23 08:12] LABS: Rapid Influenza B Negative (Negative)
[2024-06-23 08:14] LABS: Rapid Influenza A Positive (Negative)
[2024-06-23] MEDS: OSELTAMIVIR 75 MG CAP PO SCH (10:45)
[2024-06-23] MEDS ORDERED: TAMIFLU PO (11:32)
[2024-06-23] MEDS ORDERED: LEVO750T40 PO (11:32)
[2024-06-23] MEDS ORDERED: METH4PAK PO (11:33)
--- NOTE | 2024-06-23 11:37 | DVHDS2 ---
Discharge Summary Date of Admission Jun 20, 2024 at 21:20 Date of Discharge: Jun 23, 2024 Labs/Diagnostic Data: Laboratory Results Test 06/23/24 07:24 06/23/24 06:40 06/20/24 19:00 Influenza Type A Antigen Positive (Negative) Influenza Type B Antigen Negative (Negative) SARS-CoV-2 Antigen (Rapid) Negative (NEGATIVE) White Blood Count 9.3 10^3/uL (4.4-10.8) Red Blood Count 4.80 10^6/uL (4.5-5.90) Hemoglobin 15.2 g/dL (13.5-17.5) Hematocrit 46.1 % (41.0-53.0) Mean Corpuscular Volume 96.1 fL (80.0-100.0) Mean Corpuscular Hemoglobin 31.7 pg (28.0-32.0) Mean Corpuscular Hemoglobin Concent 33.0 g/dL (32.0-36.0) Red Cell Distribution Width 13.3 % (11.8-14.3) Platelet Count 158 10^3/uL (140-450) Mean Platelet Volume 7.5 fL (6.9-10.8) Neutrophils (%) (Auto) 91.9 % (37.0-80.0) Lymphocytes (%) (Auto) 3.1 % (10.0-50.0) Monocytes (%) (Auto) 5.0 % (0.0-12.0) Eosinophils (%) (Auto) 0.0 % (0.0-7.0) Basophils (%) (Auto) 0.0 % (0.0-2.0) Neutrophils # (Auto) 8.6 10 ^3/uL (1.6-8.6) Lymphocytes # (Auto) 0.3 10 ^3/uL (0.4-5.4) Monocytes # (Auto) 0.5 10 ^3/uL (0-1.3) Eosinophils # (Auto) 0 10 ^3/uL (0-0.8) Basophils # (Auto) 0 10 ^3/uL (0-0.2) Nucleated Red Blood Cells 0.1 % Sodium Level 140 mmol/L (136-145) Potassium Level 4.6 mmol/L (3.5-5.1) Chloride Level 104 mmol/L (98-107) Carbon Dioxide Level 28 mmol/L (20-31) Anion Gap 8 (5-15) Blood Urea Nitrogen 26 mg/dL (9-23) Creatinine 0.87 mg/dL (0.700-1.30) Glomerular Filtration Rate Calc 97 mL/min (>90) BUN/Creatinine Ratio 29.9 (10.0-20.0) Serum Glucose 121 mg/dL (74-106) Calcium Level 9.0 mg/dL (8.7-10.4) Magnesium Level 2.2 mg/dL (1.6-2.6) Total Bilirubin 0.4 mg/dL (0.2-1.0) Aspartate Amino Transferase (AST) 22 U/L (13-40) Alanine Aminotransferase (ALT) 33 U/L (7-40) Alkaline Phosphatase 79 U/L (46-116) Total Protein 5.4 g/dL (5.7-8.2) Albumin 3.8 g/dL (3.2-4.8) Troponin I High Sensitivity 5 ng/L (</=54) Other Laboratory Tests 06/23/24 06:40 Brief Hx & Hospital Course: Final diagnoses: Right lower lobe pneumonia Bilateral pneumonia COPD exacerbation Acute hypoxic respiratory failure Tobacco smoking Acute kidney injury due to vasomotor nephropathy Leukopenia 63-year-old male with COPD was admitted for cough and shortness of the breath and wheezing. His influenza a was positive He has a right lower lobe pneumonia on the chest x-ray He was started on IV antibiotics and IV steroids and oxygen and med neb treatments as needed The patient did well He is on room air right now He can be discharged home He will be given Levaquin for 5 days and Tamiflu and a Medrol Dosepak Follow up with his primary care physician in 1-2 weeks Condition at Discharge: Stable Final Diagnosis/Problems List Right lower lobe pneumonia Bilateral pneumonia COPD exacerbation Acute hypoxic respiratory failure Tobacco smoking Acute kidney injury due to vasomotor nephropathy Leukopenia Discharge Disposition: Home SNF Discharge Will this Physician continue t: No Discharge Statement: "Patient was advised to return to the ER or call 911 if any headaches, dizziness, shortness of breath, chest pain, abdominal pain, bleeding, fevers, or worsening of medical condition. Patient was counseled about treatment plan, medications, possible side effects, patientverbalized understanding. All questions were answered to the best of my ability. This discharge took greater then 30 minutes in planning, reviewing documentation, counseling the patient, and discussing with other team members." ASSESSMENT ASSESSMENT Assessment Date of Service: Jun 23, 2024 Billing Provider: ELENA MCKINNON MD Common Visit Codes: 52149-BRD/OBS DISCH DAY >30min ELENA MCKINNON MD Jun 23, 2024 11:36
[2024-06-23] MEDS ORDERED: methylPREDNISolone SOD SUCC 40 MG/ML VL IV SCH (22:00)
== END 2024-06-23 13:45 | disposition home or self-care (01) | DRG 193 ==
LOC: ER 17:33 → OVERFLOW 21:20 → TELE-EAST 06-21 18:01
PROVIDERS: ADMIT Internal Medicine Geriatric Medicine; ATTEND Internal Medicine Geriatric Medicine
DX: J10.00 Influenza due to other identified influenza virus with unspecified type of pneumonia (principal); J96.01 Acute respiratory failure with hypoxia; N17.0 Acute kidney failure with tubular necrosis; J44.1 Chronic obstructive pulmonary disease with (acute) exacerbation; I20.0 Unstable angina; J44.0 Chronic obstructive pulmonary disease with (acute) lower respiratory infection; Z20.822 Contact with and (suspected) exposure to COVID-19; D72.819 Decreased white blood cell count, unspecified; F17.210 Nicotine dependence, cigarettes, uncomplicated; Z88.5 Allergy status to narcotic agent
CPT/HCPCS: 36415; 71045; 80048; 80053; 83735; 84484; 85025; 87070; 87077; 87205; 87426; 87804; 93005; 94640; 96365; 99291; G0378; J3490

== ENCOUNTER 2024-12-25 23:13 | Inpatient (IN) | payer BC ==
[~2024-12-25] VITALS: Ht 180.3 cm; Wt 60.8 kg
[~2024-12-25 23:13] MED LIST: ALBUAER3 IN; FLUT1AER3 IN; GABA-1250 PO; LEVO750T40 PO; METH4PAK PO; TAMIFLU PO
--- NOTE | 2024-12-25 23:57 | ED.PDOC ---
General HPI Comments 64-year-old male who came to ER for abdominal pain. Patient states for the past 2 days he has been having left-sided abdominal pain/left flank pains, radiating to his left lower quadrant, associated with nausea, vomiting, and dysuria. Patient also complaining of generalized weakness and diaphoresis and chest discomfort. Chief Complaint: Abdominal Pain Time Seen by MD: 23:56 Primary Care Provider: [facility] Marmolejo notes: Nurses Notes Allergies: Coded Allergies: Codeine (Verified Allergy, Unknown, 02/21/18) Home Meds Active Scripts Methylprednisolone (Medrol Dosepak) 4 Mg Jaswinder, 4 MG PO UD, #21 TAB UAD Prov:ELENA MCKINNON MD 06/23/24 Levofloxacin Hemihydrate (LEVOFLOXACIN) 750 Mg Tab, 1 TAB PO DAILY, #5 TAB Prov:ELENA MCKINNON MD 06/23/24 Oseltamivir Phosphate (Tamiflu) 75 Mg Cap, 75 MG PO Q12HR for 5 Days, #10 CAP Prov:ELENA MCKINNON MD 06/23/24 Reported Medications Dncrzwwuxwt-Sovicdpogzob-Tckli (Trelegy Ellipta 100-62.5-25 Mcg/INH) 1 Aer Aer, 1 AER IN, AER 06/22/24 Gabapentin (Gabapentin) 300 Mg Cap, 400 MG PO DAILY for 30 Days, MG 06/22/24 Albuterol Sulfate (VENTOLIN MDI) 90 Mcg Ih, 90 MCG IN, INH 06/22/24 Information Source: Patient Mode of Arrival: Ambulatory Severity: Moderate Inability to void: Moderate Timing: Days Duration: Intermittent Has not urinated for: Minutes Symptoms: Dysuria Location: (L)Flank associated signs and symptoms: Abdominal Pain, Nausea, Vomiting, Flank Pain, Dysuria Past Medical History PAST MEDICAL HISTORY: COPD Surgical History: Denies all surgeries Family History Family History: Reviewed,noncontributory to illness Social History Smoker: Cigarettes Alcohol: Denies ETOH Use Drugs: Denies Drug Use Lives In: Home Constitutional: reports: diaphoresis, weakness; denies: chills, fatigue, fever, malaise, sweats, others EENTM: denies: blurred vision, double vision, ear bleeding, ear discharge, ear drainage, ear pain, ear ringing, eye pain, eye redness, hearing loss, mouth pain, mouth swelling, nasal discharge, nose bleeding, nose congestion, nose pain, photophobia, tearing, throat pain, throat swelling, voice changes, others Respiratory: denies: cough, hemoptysis, orthopnea, SOB at rest, shortness of breath, SOB with excertion, stridor, wheezing, others Cardiovascular: denies: chest pain, dizzy spells, diaphoresis, Dyspnea on exertion, edema, irregular heart beat, left arm pain, lightheadedness, palpitations, PND, syncope, others Gastrointestinal: reports: nausea, vomiting; denies: abdomen distended, abdominal pain, blood streaked bowels, constipated, diarrhea, dysphagia, difficulty swallowing, hematemesis, melena, poor appetite, poor fluid intake, rectal bleeding, rectal pain, others Genitourinary: reports: dysuria, flank pain; denies: burning, frequency, hematuria, incontinence, penile discharge, penile sore, pain, testicle pain, testicle swelling, urgency, others Neurological: denies: dizziness, fainting, headache, left sided numbness, left sided weakness, numbness, paresthesia, pre-existing deficit, right sided numbness, right sided weakness, seizure, speech problems, tingling, tremors, weakness, others Musculoskeletal: denies: back pain, gout, joint pain, joint swelling, muscle pain, muscle stiffness, neck pain, others Integumetry: denies: bruises, change in color, change in hair/nails, dryness, laceration, lesions, lumps, rash, wounds, others Allergic/Immunocompromised: denies: Difficulty Healing, Frequent Infections, Hives, Itching, others Hematologic/Lymphatic: denies: anemia, blood clots, easy bleeding, easy bruising, swollen glands, others Endocrine: denies: excessive hunger, excessive sweating, excessive thirst, excessive urination, flushing, intolerance to cold, intolerance to heat, unexplained weight gain, unexplained weight loss, others Psychiatric: denies: anxiety, bipolar disorder, depression, hopeless, panic disorder, schizophrenia, sleepless, suicidal, others Physical Exam General Appearance: No Apparent Distress, Normal HEENT: Normal ENT Inspection, Pharynx Normal, TMs Normal Neck: Full Range of Motion, Non-Tender, Normal, Normal Inspection Respiratory: Chest Non-Tender, Lungs Clear, No Accessory Muscle Use, No Respiratory Distress, Normal Breath Sounds Cardiovascular: No Edema, No JVD, No Murmur, No Gallop, Normal Peripheral Pulses, Regular Rate/Rhythm Breast Exam: Deferred Gastrointestinal: No Organomegaly, Non Tender, No Pulsatile Mass, Normal Bowel Sounds, Soft Genitalia: Deferred Pelvic: Deferred Rectal: Deferred Extremities: No calf tenderness, Normal capillary refill, Normal inspection, Normal range of motion, Non-tender, No pedal edema Musculoskeletal : Apperance: Normal Neurologic: Alert, blood bank coordinator II-XII nml as Tested, No Motor Deficits, Normal Affect, Normal Mood, No Sensory Deficits Cerebellar Function: Normal Reflexes: Normal Skin: Dry, Normal Color, Warm Lymphatic: No Adenopathy Was a procedure done? Was a procedure done?: No Differential Diagnosis Kidney stone (Female): N/A Kidney stone (Male): Pancreatitis, Strain, Urinary obstruction, Urolithiasis, Renal infarction, Urinary tract infection Urinary Problem (Male): Renal Failure, Urethritis, Urinary Retention, Urolithiasis, UTI X-Ray, Labs, Meds, VS Vital Signs Date Time Temp Pulse Resp B/P (MAP) Pulse Ox O2 Delivery O2 Flow Rate FiO2 12/26/24 03:40 71 18 124/77 12/26/24 03:38 97.8 71 16 124/77 (93) 97 97.8 12/26/24 01:18 71 20 98 Room Air* 0 21 12/26/24 01:16 71 20 136/85 12/26/24 00:53 98.3 71 20 136/85 (102) 98 98.3 12/25/24 23:16 97.6 63 22 137/85 96 97.6 Lab Test 12/26/24 01:18 12/26/24 00:44 12/25/24 23:51 Range/Units Urine Color Yellow Yellow Urine Clarity Clear Clear Urine pH 5.5 5.0-9.0 Urine Specific [place] 1.023 1.001-1.035 Urine Protein 1+ H Negative Urine Ketones Negative Negative Urine Blood 1+ H Negative /uL Urine Nitrite Negative Negative Urine Bilirubin Negative Negative Urine Urobilinogen Normal Negative mg/dL Urine Leukocyte Esterase Negative Negative /uL Urine RBC 11 0 - 3 /hpf Urine Microscopic WBC 5 H 0-3 /HPF Urine Squamous Epithelial Cells Few <5 /hpf Urine Bacteria None seen None Seen /hpf Urine Mucus Few None Seen Urine Glucose Normal Normal mg/dL Troponin I High Sensitivity < 3 L < 3 L </=54 ng/L White Blood Count 10.0 4.4-10.8 10^3/uL Red Blood Count 5.26 4.5-5.90 10^6/uL Hemoglobin 17.3 13.5-17.5 g/dL Hematocrit 49.8 41.0-53.0 % Mean Corpuscular Volume 94.7 80.0-100.0 fL Mean Corpuscular Hemoglobin 32.9 H 28.0-32.0 pg Mean Corpuscular Hemoglobin Concent 34.7 32.0-36.0 g/dL Red Cell Distribution Width 13.2 11.8-14.3 % Platelet Count 192 140-450 10^3/uL Mean Platelet Volume 7.2 6.9-10.8 fL Neutrophils (%) (Auto) 74.5 37.0-80.0 % Lymphocytes (%) (Auto) 14.4 10.0-50.0 % Monocytes (%) (Auto) 8.3 0.0-12.0 % Eosinophils (%) (Auto) 2.4 0.0-7.0 % Basophils (%) (Auto) 0.4 0.0-2.0 % Neutrophils # (Auto) 7.5 1.6-8.6 10 ^3/uL Lymphocytes # (Auto) 1.4 0.4-5.4 10 ^3/uL Monocytes # (Auto) 0.8 0-1.3 10 ^3/uL Eosinophils # (Auto) 0.2 0-0.8 10 ^3/uL Basophils # (Auto) 0 0-0.2 10 ^3/uL Nucleated Red Blood Cells 0.0 % Sodium Level 142 136-145 mmol/L Potassium Level 4.1 3.5-5.1 mmol/L Chloride Level 106 98-107 mmol/L Carbon Dioxide Level 28 20-31 mmol/L Anion Gap 8 5-15 Blood Urea Nitrogen 18 9-23 mg/dL Creatinine 1.42 H 0.700-1.30 mg/dL Glomerular Filtration Rate Calc 55 >90 mL/min BUN/Creatinine Ratio 12.7 10.0-20.0 Serum Glucose 128 H 74-106 mg/dL Calcium Level 10.1 8.7-10.4 mg/dL Magnesium Level 2.0 1.6-2.6 mg/dL Total Bilirubin 0.4 0.2-1.0 mg/dL Aspartate Amino Transferase (AST) 20 13-40 U/L Alanine Aminotransferase (ALT) 15 7-40 U/L Alkaline Phosphatase 120 H 46-116 U/L Total Protein 6.9 5.7-8.2 g/dL Albumin 4.7 3.2-4.8 g/dL Lipase 34 12-53 U/L Current Medications Medications (Trade) Dose Ordered Sig/Steve Route Start Time Stop Time Status Last Admin Ondansetron HCl (Zofran) 4 mg ONCE ONCE IV 12/25/24 23:45 12/25/24 23:46 DC 12/26/24 01:14 Sodium Chloride 1,000 ml @ 1,000 mls/hr Q1H ONCE IVB 12/25/24 23:45 12/26/24 00:44 DC 12/26/24 01:14 Morphine Sulfate 4 mg ONCE ONCE IV 12/25/24 23:45 12/25/24 23:46 DC 12/26/24 01:16 Time of 1ST Reevaluation: 23:54 Reevaluation 1ST: Unchanged Patient Education/Counseling: Diagnosis, Treatment Family Education/Counseling: Diagnosis, Treatment SEPSIS Sepsis Screen Date sepsis recognized/suspect: Dec 25, 2024 Time Sepsis recognized/suspect: 2318 Recent Procedure: No On Antibiotic Therapy: No Respiratory Rate >20: No Heart Rate >90: No Temp<36 C (96.8 F) or >38.3 C: No SBP <90 or MAP <65 mmHG: No New Acute Mental Status Change: No Is the patient on CPAP, BIPAP,: No Physician Orders Ct Ab Pel With Iv Con Only (12/25/24 01:55) Chest Portable (12/25/24 01:55) Vital Signs Date Time Temp Pulse Resp B/P (MAP) Pulse Ox O2 Delivery O2 Flow Rate FiO2 12/26/24 03:40 71 18 124/77 12/26/24 03:38 97.8 71 16 124/77 (93) 97 97.8 12/26/24 01:18 71 20 98 Room Air* 0 21 12/26/24 01:16 71 20 136/85 12/26/24 00:53 98.3 71 20 136/85 (102) 98 98.3 12/25/24 23:16 97.6 63 22 137/85 96 97.6 Laboratory Tests Test 12/25/24 23:51 White Blood Count 10.0 10^3/uL (4.4-10.8) Medications Medications Dose Ordered Sig/Steve Route Start Time Stop Time Status Last Admin Dose Admin Morphine Sulfate 4 mg ONCE ONCE IV 12/25/24 23:45 12/25/24 23:46 DC 12/26/24 01:16 Ondansetron HCl 4 mg ONCE ONCE IV 12/25/24 23:45 12/25/24 23:46 DC 12/26/24 01:14 Sodium Chloride 1,000 ml @ 1,000 mls/hr Q1H ONCE IVB 12/25/24 23:45 12/26/24 00:44 DC 12/26/24 01:14 Departure 1 Departure Time of Disposition: 05:18 Impression: Primary Impression: Ureter colic Additional Impressions: Ureteral calculus, left Acute renal injury Disposition: ADMITTED INPATIENT Admit to: Med Surg Condition: Guarded Discharged With: Self Comments 64-year-old male with a history of COPD and cigarette smoking now with severe left flank pain. CT of the abdomen and pelvis shows a days medium size kidney stone. Lab review shows acute renal injury with creatinine elevated 1.42. Patient with persistent pain on re-evaluation. Patient will need admission for supportive care and further workup and possible urology consultation Critical Care Note Critical Care Time?: No Stability Stability form required: No Heart Score Heart Score: Heart Score Response (Comments) Value History N/A 0 EKG N/A 0 Age N/A 0 Risk Factors N/A 0 Troponin N/A 0 Total 0 I personally scribed for ANNMARIE KHAN MD ([email or web address]) on 12/25/24 at 23:57. Electronically submitted by Luis Booth ([email or web address]). ANNMARIE KHAN MD Dec 25, 2024 23:57
[2024-12-26] VITALS (7 sets, daily range): BP systolic 108–113; BP diastolic 68–80; PULSE 61–71; RESP 16–20; TEMP 98.2–98.4; O2SAT 93–98
[2024-12-26 00:17] LABS: Hematocrit 49.8 % (41.0-53.0); Hemoglobin 17.3 g/dL (13.5-17.5); Mean Corpuscular Hemoglobin 32.9 pg (28.0-32.0); Mean Corpuscular Volume 94.7 fL (80.0-100.0); Nucleated Red Blood Cells % 0.0 %
[2024-12-26 00:32] LABS: Alanine Aminotransferase 15 U/L (7-40); Albumin 4.7 g/dL (3.2-4.8); Anion Gap 8 (5-15); BUN/Creatinine Ratio 12.7 (10.0-20.0); Blood Urea Nitrogen 18 mg/dL (9-23); Calcium 10.1 mg/dL (8.7-10.4); Carbon Dioxide 28 mmol/L (20-31); Chloride 106 mmol/L (98-107); Lipase 34 U/L (12-53); Magnesium 2.0 mg/dL (1.6-2.6); Potassium 4.1 mmol/L (3.5-5.1); Sodium 142 mmol/L (136-145); Total Protein 6.9 g/dL (5.7-8.2)
[2024-12-26 00:33] LABS: Bilirubin, Total 0.4 mg/dL (0.2-1.0)
[2024-12-26 00:36] LABS: Alkaline Phosphatase 120 U/L (46-116); Glucose 128 mg/dL (74-106)
[2024-12-26] MEDS: ONDANSETRON HCL 4 MG/2 ML VIAL IV ONE (01:14)
[2024-12-26] MEDS: SODIUM CHLORIDE 0.9% 1,000 ML IVB ONE (01:14)
[2024-12-26] MEDS: MORPHINE SULFATE 4 MG/ML SYR/VIAL IV ONE (01:16)
[2024-12-26 01:35] LABS: Urine Protein, UAD 1+ (Negative)
[2024-12-26] MEDS: IOHEXOL 300 MG/ML 100ML BOTTLE IJ ONE (02:02)
--- NOTE | 2024-12-26 02:50 | DVH ---
CHEST RADIOGRAPH Indication: chest pain Technique: Single frontal view of the chest was obtained COMPARISON: XY CHEST PORTABLE on DOS: 06/20/24, CHEST PORTABLE on DOS: 06/29/19 FINDINGS: Lines and Tubes: None Lungs: Mild persistent bilateral perihilar pulmonary infiltrate and chronic appearing bilateral inter stitial pulmonary markings. Pleura: No effusion. No pneumothorax. Cardiomediastinal contours: Unremarkable Bones: Unremarkable IMPRESSION: 1. Mild persistent bilateral perihilar pulmonary infiltrate. 2. Chronic appearing bilateral interstitial pulmonary markings.
--- NOTE | 2024-12-26 04:55 | DVH ---
EXAM: CT CT AB PEL WITH IV CON ONLY HISTORY: abd pain COMPARISON: None TECHNIQUE: Helical CT images of the abdomen and pelvis were performed with 100 mL Omnipaque 300 IV co ntrast. Sagittal and coronal reformatted images were obtained. This CT exam was performed using one o r more of the following dose reduction techniques: Automated exposure control, adjustment of the mA a nd/or kv according to patient size, or the use of iterative reconstruction techniques. Radiation Dose: Abdomen/Pelvis: CTDIvol 7.36 mGy, DLP 402.79 mGy*cm. FINDINGS: CT abdomen: There is emphysema of the lung bases. The heart is borderline enlarged. There are coronar y artery calcifications. There is a small sliding hiatal hernia. The liver, spleen, gallbladder, huggins creas, and adrenal glands are unremarkable. There are multiple right renal simple cortical cysts. Th ere is a left renal inferior pole simple cortical cysts. There is left [id number] hydronephros is and hydroureter with 2 mm left distal ureteral calculus (image 75, series 2). No abdominal aortic aneurysm. CT pelvis: No abnormal bowel dilatation, free air, or free fluid. The appendix is not definitely visu alized, and there is no specific evidence of acute appendicitis. There is fecal retention in the colo n, greater proximally. The prostate is moderately enlarged, with mass effect on the urinary bladder l umen. There is advanced lumbar degenerative disc disease and facet arthropathy with multilevel signif icant neural foraminal stenosis bilaterally. There is mild osteoarthritis of the hips. IMPRESSION: 1. Emphysema of the lung bases. 2. Coronary artery disease and borderline cardiomegaly. 3. Small hiatal hernia. 4. [id number]-ko-yauncirx left hydronephrosis and hydroureter secondary to 2 mm left distal ureteral calcul us. 5. Fecal retention in the proximal colon suggestive of constipation. 6. No evidence of bowel obstruction or other acute process in the abdomen or pelvis.
--- NOTE | 2024-12-26 06:55 | DVHHP2 ---
History of Present Illness Reason for Visit: Acute abdominal pain History of Present Illness The patient is a 64-year-old male with past medical history of COPD who presented to [facility] ED with complaint of abdominal pain. Patient reports for the past 2 days he has been having left-sided abdominal pain,left flank pains, radiating to his left lower quadrant, associated with nausea, vomiting, and dysuria. Patient also complaining of generalized weakness, diaphoresis and chest discomfort. Patient was seen and evaluated in the ED, laboratory data shows WBC 10.0, platelets 192, sodium 142, potassium 4.2, BUN 18, creatinine 1.42, glucose 128, calcium 10.1, lipase 34, troponin < 3, blood pressure 131/54, heart rate 77, temperature 98.1 F, O2 saturation 96% on room air. Abdomen/pelvis CT revealing mild to moderate left hydronephrosis and hydroureter secondary to 2 mm left distal ureteral calculus. Chest x-ray revealing mild persistent bilateral perihilar pulmonary infiltrates. Please see medication orders section in the computer. On my assessment, patient denied chest pain, no headache, no dizziness, no diaphoresis, no shortness of breath, no nausea, no vomiting, no fever, no chills. Patient was admitted for further evaluation and medical management. Past Medical History COPD Past Surgical History Denies all surgeries Family History Reviewed, noncontributory to the management of this case. Past Social History The patient lives at home, denies smoking, alcohol or illicit drugs abuse. Review of Systems Constitutional: Yes: Weakness, Other (Diaphoresis); No: Fever, Chills, Sweats, Malaise Eyes: No: Pain, Vision change, Conjunctivae inflammation, Eyelid inflammation, Other, Redness ENT: No: Ear pain, Ear discharge, Nose pain, Nose discharge, Nose congestion, Mouth pain, Mouth swelling, Throat pain, Throat swelling, Other Respiratory: No: Cough, Dry, Shortness of breath, SOB with excertion, Wheezing, Hemoptysis, Pleuritic Pain, Sputum, Wheezing, Other Cardiovascular: No: Chest Pain, Palpitations, Orthopnea, Paroxysmal Noc. Dyspnea, Edema, Lt Headedness, Other Gastrointestinal: Nausea, Vomiting, Abdominal Pain; No: Diarrhea, Constipation, Melena, Hematochezia, Other Genitourinary: Dysuria; No Frequency, No Incontinence, No Hematuria, No Retention; Other (Flank pain) Musculoskeletal: No: other, neck pain, shoulder pain, arm pain, back pain, hand pain, leg pain, foot pain Skin: No: Rash, Lesions, Jaundice, Bruising, Other Neurological: No: Weakness, Numbness, Incoordination, Change in speech, Confusion, Seizures, Other Allergies: Coded Allergies: Codeine (Verified Allergy, Unknown, 02/21/18) Exam Vital Signs Vital Signs Date Time Temp Pulse Resp B/P (MAP) Pulse Ox O2 Delivery O2 Flow Rate FiO2 12/26/24 05:52 98.1 77 16 131/54 (79) 96 98.1 12/26/24 01:18 Room Air* 0 21 General Appearance: Alert, Oriented X3, Cooperative, No acute distress HEENT: Atraumatic, PERRLA, EOMI, Mucous membr. moist/pink Respiratory: Normal air movement Cardiovascular: Regular rate, Normal S1, Normal S2, No murmurs Abdominal: Normal bowel sounds, Soft, No hepatospenomegaly, No masses, Other (Reports tenderness) Extremities: No clubbing, No cyanosis, No edema, Normal pulses, No tenderness/swelling Skin: No rashes, No breakdown, No significant lesion Neuro: Normal speech, Normal tone, Sensation intact, Cranial nerves 3-12 NL, Reflexes 2+, Other (Generalized weakness) Psych/Mental Status: Mental status NL, Mood NL Labs/Xrays Labs Test 12/26/24 01:18 12/26/24 00:44 12/25/24 23:51 Range/Units Urine Color Yellow Yellow Urine Clarity Clear Clear Urine pH 5.5 5.0-9.0 Urine Specific [place] 1.023 1.001-1.035 Urine Protein 1+ H Negative Urine Ketones Negative Negative Urine Blood 1+ H Negative /uL Urine Nitrite Negative Negative Urine Bilirubin Negative Negative Urine Urobilinogen Normal Negative mg/dL Urine Leukocyte Esterase Negative Negative /uL Urine RBC 11 0 - 3 /hpf Urine Microscopic WBC 5 H 0-3 /HPF Urine Squamous Epithelial Cells Few <5 /hpf Urine Bacteria None seen None Seen /hpf Urine Mucus Few None Seen Urine Glucose Normal Normal mg/dL Troponin I High Sensitivity < 3 L </=54 ng/L White Blood Count 10.0 4.4-10.8 10^3/uL Red Blood Count 5.26 4.5-5.90 10^6/uL Hemoglobin 17.3 13.5-17.5 g/dL Hematocrit 49.8 41.0-53.0 % Mean Corpuscular Volume 94.7 80.0-100.0 fL Mean Corpuscular Hemoglobin 32.9 H 28.0-32.0 pg Mean Corpuscular Hemoglobin Concent 34.7 32.0-36.0 g/dL Red Cell Distribution Width 13.2 11.8-14.3 % Platelet Count 192 140-450 10^3/uL Mean Platelet Volume 7.2 6.9-10.8 fL Neutrophils (%) (Auto) 74.5 37.0-80.0 % Lymphocytes (%) (Auto) 14.4 10.0-50.0 % Monocytes (%) (Auto) 8.3 0.0-12.0 % Eosinophils (%) (Auto) 2.4 0.0-7.0 % Basophils (%) (Auto) 0.4 0.0-2.0 % Neutrophils # (Auto) 7.5 1.6-8.6 10 ^3/uL Lymphocytes # (Auto) 1.4 0.4-5.4 10 ^3/uL Monocytes # (Auto) 0.8 0-1.3 10 ^3/uL Eosinophils # (Auto) 0.2 0-0.8 10 ^3/uL Basophils # (Auto) 0 0-0.2 10 ^3/uL Nucleated Red Blood Cells 0.0 % Sodium Level 142 136-145 mmol/L Potassium Level 4.1 3.5-5.1 mmol/L Chloride Level 106 98-107 mmol/L Carbon Dioxide Level 28 20-31 mmol/L Anion Gap 8 5-15 Blood Urea Nitrogen 18 9-23 mg/dL Creatinine 1.42 H 0.700-1.30 mg/dL Glomerular Filtration Rate Calc 55 >90 mL/min BUN/Creatinine Ratio 12.7 10.0-20.0 Serum Glucose 128 H 74-106 mg/dL Calcium Level 10.1 8.7-10.4 mg/dL Magnesium Level 2.0 1.6-2.6 mg/dL Total Bilirubin 0.4 0.2-1.0 mg/dL Aspartate Amino Transferase (AST) 20 13-40 U/L Alanine Aminotransferase (ALT) 15 7-40 U/L Alkaline Phosphatase 120 H 46-116 U/L Total Protein 6.9 5.7-8.2 g/dL Albumin 4.7 3.2-4.8 g/dL Lipase 34 12-53 U/L PATIENT: ANGY CUELLAR ACCT: [id number] UNIT: [id number] : 1960 LOC: ER ROOM / BED: / AGE / SEX: 64 / M ADM STATUS: REG ER SERVICE 0155 ORDERING PHYSICIAN: ANNMARIE KHAN MD PROCEDURE(s): ABPLIV - CT AB PEL WITH IV CON ONLY REASON: abd pain ORDER NUMBER(s): [id number], ACCESSION NUMBER(s): [id number] EXAM: CT CT AB PEL WITH IV CON ONLY HISTORY: abd pain COMPARISON: None TECHNIQUE: Helical CT images of the abdomen and pelvis were performed with 100 mL Omnipaque 300 IV contrast. Sagittal and coronal reformatted images were obtained. This CT exam was performed using one or more of the following dose reduction techniques: Automated exposure control, adjustment of the mA and/or kv according to patient size, or the use of iterative reconstruction techniques. Radiation Dose: Abdomen/Pelvis: CTDIvol 7.36 mGy, DLP 402.79 mGy*cm. FINDINGS: CT abdomen: There is emphysema of the lung bases. The heart is borderline enlarged. There are coronary artery calcifications. There is a small sliding hiatal hernia. The liver, spleen, gallbladder, pancreas, and adrenal glands are unremarkable. There are multiple right renal simple cortical cysts. There is a left renal inferior pole simple cortical cysts. There is left [id number] hydronephrosis and hydroureter with 2 mm left distal ureteral calculus (image 75, series 2). No abdominal aortic aneurysm. CT pelvis: No abnormal bowel dilatation, free air, or free fluid. The appendix is not definitely visualized, and there is no specific evidence of acute appendicitis. There is fecal retention in the colon, greater proximally. The prostate is moderately enlarged, with mass effect on the urinary bladder lumen. There is advanced lumbar degenerative disc disease and facet arthropathy with multilevel significant neural foraminal stenosis bilaterally. There is mild osteoarthritis of the hips. IMPRESSION: 1. Emphysema of the lung bases. 2. Coronary artery disease and borderline cardiomegaly. 3. Small hiatal hernia. 4. Wwnh-yw-gpsmzzuu left hydronephrosis and hydroureter secondary to 2 mm left distal ureteral calculus. 5. Fecal retention in the proximal colon suggestive of constipation. 6. No evidence of bowel obstruction or other acute process in the abdomen or pelvis. ORDERING PHYSICIAN: ANNMARIE KHAN MD PROCEDURE(s): CXRP - CHEST PORTABLE REASON: chest pain ORDER NUMBER(s): [id number], ACCESSION NUMBER(s): [id number] CHEST RADIOGRAPH Indication: chest pain Technique: Single frontal view of the chest was obtained COMPARISON: XY CHEST PORTABLE on DOS: 06/20/24, CHEST PORTABLE on DOS: 06/29/19 FINDINGS: Lines and Tubes: None Lungs: Mild persistent bilateral perihilar pulmonary infiltrate and chronic appearing bilateral interstitial pulmonary markings. Pleura: No effusion. No pneumothorax. Cardiomediastinal contours: Unremarkable Bones: Unremarkable IMPRESSION: 1. Mild persistent bilateral perihilar pulmonary infiltrate. 2. Chronic appearing bilateral interstitial pulmonary markings. SEPSIS Sepsis Screen Date sepsis recognized/suspect: Dec 25, 2024 Time Sepsis recognized/suspect: 2318 Recent Procedure: No On Antibiotic Therapy: No Respiratory Rate >20: No Heart Rate >90: No Temp<36 C (96.8 F) or >38.3 C: No SBP <90 or MAP <65 mmHG: No New Acute Mental Status Change: No Is the patient on CPAP, BIPAP,: No Physician Orders Ct Ab Pel With Iv Con Only (12/25/24 01:55) Chest Portable (12/25/24 01:55) Complete Blood Count (12/26/24 06:51) Comprehensive Metabolic Panel (12/26/24 06:51) * Urology Consult (12/26/24 06:51) Admit (12/26/24 06:51) Allergies (12/26/24 06:51) Code Status (12/26/24 06:51) Sodium Chloride Lock (Saline Lock Ns) (12/26/24 14:00) Oxygen Per Hour (12/26/24 06:51) Ondansetron Hcl (Zofran) (12/26/24 07:00) Docusate Sodium Capsule (Colace Capsule) (12/26/24 07:00) Complete Blood Count (12/27/24 04:00) Comprehensive Metabolic Panel (12/27/24 04:00) Cardiac Diet-2gna,Lofat,Lochol (12/26/24 Breakfast) Condition: Serious (12/26/24 06:51) Acetaminophen Tablet (Tylenol Tablet) (12/26/24 07:00) Bedrest With Bathroom Privileg (12/26/24 06:51) Morphine Sulfate Injection (12/26/24 07:00) Sequential Compression Device (12/26/24 ) Nitroglycerin Sublingual (Ntrostat Subli (12/26/24 07:00) Morphine Sulfate Injection (12/26/24 07:00) Notify Of Changes From Base (12/26/24 06:51) Emergency Dysrhythmia Protocol (12/26/24 06:51) Oxygen By Nasal Cannula (12/26/24 06:51) Vital Signs Date Time Temp Pulse Resp B/P (MAP) Pulse Ox O2 Delivery O2 Flow Rate FiO2 12/26/24 05:52 98.1 77 16 131/54 (79) 96 98.1 12/26/24 03:40 71 18 124/77 12/26/24 03:38 97.8 71 16 124/77 (93) 97 97.8 12/26/24 01:18 71 20 98 Room Air* 0 21 12/26/24 01:16 71 20 136/85 12/26/24 00:53 98.3 71 20 136/85 (102) 98 98.3 12/25/24 23:16 97.6 63 22 137/85 96 97.6 Laboratory Tests Test 12/25/24 23:51 White Blood Count 10.0 10^3/uL (4.4-10.8) Medications Medications Dose Ordered Sig/Steve Route Start Time Stop Time Status Last Admin Dose Admin Morphine Sulfate 4 mg ONCE ONCE IV 12/25/24 23:45 12/25/24 23:46 DC 12/26/24 01:16 4 MG Ondansetron HCl 4 mg ONCE ONCE IV 12/25/24 23:45 12/25/24 23:46 DC 12/26/24 01:14 4 MG Sodium Chloride 1,000 ml @ 1,000 mls/hr Q1H ONCE IVB 12/25/24 23:45 12/26/24 00:44 DC 12/26/24 01:14 1,000 MLS/HR Assessment/Plan Assessment/Plan Abdominal pain Ureter colic Hydronephrosis Ureteral calculus, left Acute renal injury Generalized weakness Plan 1. Admit to med surge unit 2. Breathing treatment 3. Pain control management 4. IV antibiotic management 5. Management of fluids and electrolytes 6. Consultation for Urology 7. Diagnostic test abdomen/pelvis CT 8. DVT prophylaxis-on SCDs 9. Repeat labs CBC, CMP in a.m. 10. Home medication reviewed and reconciled 11. Continue with current medical management 12. Treatment plan discussed with patient and RN. Patient verbalized understanding. Plan discussed with: Patient, Other (RN) My Orders Orders - ALMA ROSA CALHOUN DNP Procedure Category Date Status Time Complete Blood Count LAB 12/26/24 Transmitted 06:51 Comprehensive LAB 12/26/24 Transmitted Metabolic Panel 06:51 * Urology Consult CONS 12/26/24 Transmitted 06:51 Admit ADMIT 12/26/24 Transmitted 06:51 Allergies WILBERTO 12/26/24 Transmitted 06:51 Code Status CODE 12/26/24 Transmitted 06:51 Sodium Chloride Lock PHA 12/26/24 Transmitted (Saline Lock Ns) 14:00 Oxygen Per Hour RT 12/26/24 Transmitted 06:51 Ondansetron Hcl PHA 12/26/24 Transmitted (Zofran) 07:00 Docusate Sodium PHA 12/26/24 Transmitted Capsule (Colace 07:00 Complete Blood Count LAB 12/27/24 Verified 04:00 Comprehensive LAB 12/27/24 Verified Metabolic Panel 04:00 Cardiac DIET 12/26/24 Transmitted Diet-2gna,Lofat,Lochol Breakfast Condition: Serious WILBERTO 12/26/24 Transmitted 06:51 Acetaminophen Tablet PHA 12/26/24 Transmitted (Tylenol Tablet) 07:00 Bedrest With Bathroom WILBERTO 12/26/24 Transmitted Privileg 06:51 Morphine Sulfate PHA 12/26/24 Transmitted Injection 07:00 Sequential WILBERTO 12/26/24 Transmitted Compression Device Nitroglycerin PHA 12/26/24 Transmitted Sublingual (Ntrostat 07:00 Morphine Sulfate PHA 12/26/24 Transmitted Injection 07:00 Notify Of Changes [facility] 12/26/24 Transmitted From Base 06:51 Emergency Dysrhythmia WILBERTO 12/26/24 Transmitted Protocol 06:51 Oxygen By Nasal RT 12/26/24 Transmitted Cannula 06:51 Problem List: (1) Abdominal pain (2) Ureter colic (3) Hydronephrosis (4) Ureteral calculus, left (5) Acute renal injury (6) Generalized weakness Date of Service: Dec 26, 2024 Billing Provider: ALMA ROSA CALHOUN DNP Common Visit Codes: [id number] INP/OBS CARE (HIGH) ALMA ROSA CALHOUN DNP Dec 26, 2024 06:55
[2024-12-26] MEDS ORDERED: ACETAMINOPHEN 325 MG TAB PO PRN (07:00)
[2024-12-26] MEDS ORDERED: NITROGLYCERIN 0.4 MG SL TAB SL PRN (07:00)
[2024-12-26] MEDS ORDERED: MORPHINE SULFATE INJ 2 MG/ml SYRG IV PRN (07:00)
[2024-12-26] MEDS ORDERED: DOCUSATE SOD 100 MG CAP PO PRN (07:00)
[2024-12-26 07:58] LABS: Alanine Aminotransferase 14 U/L (7-40); Albumin 4.7 g/dL (3.2-4.8); Alkaline Phosphatase 115 U/L (46-116); Anion Gap 4 (5-15); BUN/Creatinine Ratio 10.7 (10.0-20.0); Blood Urea Nitrogen 15 mg/dL (9-23); Calcium 10.0 mg/dL (8.7-10.4); Carbon Dioxide 28 mmol/L (20-31); Chloride 107 mmol/L (98-107); Potassium 4.9 mmol/L (3.5-5.1); Sodium 139 mmol/L (136-145); Total Protein 7.2 g/dL (5.7-8.2)
[2024-12-26 07:59] LABS: Bilirubin, Total 0.9 mg/dL (0.2-1.0)
[2024-12-26 08:01] LABS: Glucose 134 mg/dL (74-106); Hematocrit 50.1 % (41.0-53.0); Hemoglobin 17.1 g/dL (13.5-17.5); Mean Corpuscular Hemoglobin 32.6 pg (28.0-32.0); Mean Corpuscular Volume 95.8 fL (80.0-100.0); Nucleated Red Blood Cells % 0.2 %
[2024-12-26] MEDS: SODIUM CHLOR 0.9% PF (SALINE LOCK) 10ML VIAL/SYR IV SCH (13:47)
[2024-12-26] MEDS: ONDANSETRON HCL 4 MG/2 ML VIAL IV PRN (14:50)
--- NOTE | 2024-12-26 18:14 | DVHINCON2 ---
Date of service: Dec 26, 2024 Referring Physician Narayan Reason for Consultation stone History of Present Illness 2 day hx progressive left ureteral colic seen here ER .CT shows 1mm stone at left UVJ;pt had 3 prior stones through lifetime Past Medical History reviewed Past Surgical History reviewed Family History: Patient reports no known family medical history. Allergies: Coded Allergies: Codeine (Verified Allergy, Unknown, 02/21/18) Home Meds Active Scripts Methylprednisolone (Medrol Dosepak) 4 Mg Jaswinder, 4 MG PO UD, #21 TAB UAD Prov:ELENA MCKINNON MD 06/23/24 Levofloxacin Hemihydrate (LEVOFLOXACIN) 750 Mg Tab, 1 TAB PO DAILY, #5 TAB Prov:ELENA MCKINNON MD 06/23/24 Oseltamivir Phosphate (Tamiflu) 75 Mg Cap, 75 MG PO Q12HR for 5 Days, #10 CAP Prov:ELENA MCKINNON MD 06/23/24 Reported Medications Hhqhbjrfrzn-Hobezbgpugip-Sjzmb (Trelegy Ellipta 100-62.5-25 Mcg/INH) 1 Aer Aer, 1 AER IN, AER 06/22/24 Gabapentin (Gabapentin) 300 Mg Cap, 400 MG PO DAILY for 30 Days, MG 06/22/24 Albuterol Sulfate (VENTOLIN MDI) 90 Mcg Ih, 90 MCG IN, INH 06/22/24 Current Medications Current Medications Medications (Trade) Dose Ordered Sig/Steve Route PRN Reason Start Time Stop Time Status Last Admin Sodium Chloride (Saline Lock Ns) 10 ml Q8HR IV 12/26/24 14:00 12/26/24 13:47 Ondansetron HCl (Zofran) 4 mg Q4HP PRN IV NAUSEA / VOMITING 12/26/24 07:00 12/26/24 14:50 Docusate Sodium (Colace Capsule) 100 mg BIDPRN PRN PO FOR CONSTIPATION 12/26/24 07:00 Acetaminophen (Tylenol Tablet) 650 mg Q6HP PRN PO PAIN SCALE 1-3 OR TEMP>100.4 12/26/24 07:00 Morphine Sulfate 2 mg Q4HPRN PRN IV SEVERE PAIN (7-10 PAIN SCALE) 12/26/24 07:00 Nitroglycerin (Ntrostat Sublingual) 0.4 mg Q5MINP PRN SL FOR CHEST PAIN 12/26/24 07:00 Morphine Sulfate 2 mg Q30M PRN IV FOR CHEST PAIN 12/26/24 07:00 Review of Systems reviewed Vital Signs Vital Signs Date Time Temp Pulse Resp B/P (MAP) Pulse Ox O2 Delivery O2 Flow Rate FiO2 12/26/24 13:00 98.2 61 18 113/76 (88) 96 98.2 12/26/24 09:00 Room Air* 0 21 Labs/Diagnostic Data Labs Test 12/26/24 07:09 12/26/24 01:18 12/26/24 00:44 12/25/24 23:51 Range/Units White Blood Count 12.5 H 4.4-10.8 10^3/uL Red Blood Count 5.23 4.5-5.90 10^6/uL Hemoglobin 17.1 13.5-17.5 g/dL Hematocrit 50.1 41.0-53.0 % Mean Corpuscular Volume 95.8 80.0-100.0 fL Mean Corpuscular Hemoglobin 32.6 H 28.0-32.0 pg Mean Corpuscular Hemoglobin Concent 34.1 32.0-36.0 g/dL Red Cell Distribution Width 13.2 11.8-14.3 % Platelet Count 177 140-450 10^3/uL Mean Platelet Volume 7.8 6.9-10.8 fL Neutrophils (%) (Auto) 90.8 H 37.0-80.0 % Lymphocytes (%) (Auto) 3.8 L 10.0-50.0 % Monocytes (%) (Auto) 4.9 0.0-12.0 % Eosinophils (%) (Auto) 0.2 0.0-7.0 % Basophils (%) (Auto) 0.3 0.0-2.0 % Neutrophils # (Auto) 11.4 H 1.6-8.6 10 ^3/uL Lymphocytes # (Auto) 0.5 0.4-5.4 10 ^3/uL Monocytes # (Auto) 0.6 0-1.3 10 ^3/uL Eosinophils # (Auto) 0 0-0.8 10 ^3/uL Basophils # (Auto) 0 0-0.2 10 ^3/uL Nucleated Red Blood Cells 0.2 % Sodium Level 139 136-145 mmol/L Potassium Level 4.9 3.5-5.1 mmol/L Chloride Level 107 98-107 mmol/L Carbon Dioxide Level 28 20-31 mmol/L Anion Gap 4 L 5-15 Blood Urea Nitrogen 15 9-23 mg/dL Creatinine 1.40 H 0.700-1.30 mg/dL Glomerular Filtration Rate Calc 56 >90 mL/min BUN/Creatinine Ratio 10.7 10.0-20.0 Serum Glucose 134 H 74-106 mg/dL Calcium Level 10.0 8.7-10.4 mg/dL Total Bilirubin 0.9 0.2-1.0 mg/dL Aspartate Amino Transferase (AST) 23 13-40 U/L Alanine Aminotransferase (ALT) 14 7-40 U/L Alkaline Phosphatase 115 46-116 U/L Total Protein 7.2 5.7-8.2 g/dL Albumin 4.7 3.2-4.8 g/dL Urine Color Yellow Yellow Urine Clarity Clear Clear Urine pH 5.5 5.0-9.0 Urine Specific [place] 1.023 1.001-1.035 Urine Protein 1+ H Negative Urine Ketones Negative Negative Urine Blood 1+ H Negative /uL Urine Nitrite Negative Negative Urine Bilirubin Negative Negative Urine Urobilinogen Normal Negative mg/dL Urine Leukocyte Esterase Negative Negative /uL Urine RBC 11 0 - 3 /hpf Urine Microscopic WBC 5 H 0-3 /HPF Urine Squamous Epithelial Cells Few <5 /hpf Urine Bacteria None seen None Seen /hpf Urine Mucus Few None Seen Urine Glucose Normal Normal mg/dL Troponin I High Sensitivity < 3 L </=54 ng/L Magnesium Level 2.0 1.6-2.6 mg/dL Lipase 34 12-53 U/L Assessment left ureteral stone Plan/Recommendation hydration,analgesia,strain urine Plan discussed with: Patient DL MEEK MD Dec 26, 2024 18:14
[2024-12-26] MEDS: SODIUM CHLORIDE 0.9% 1,000 ML IV SCH (19:34)
[2024-12-26] MEDS: NICOTINE 21MG/24 HR TOPICAL PATCH TD SCH (20:47)
[2024-12-26] MEDS ORDERED: ALBUTEROL SULF 2.5 MG/0.5ML(0.5%) NEB SOLN NEB PRN (21:45)
[2024-12-27] VITALS (8 sets, daily range): BP systolic 101–122; BP diastolic 61–80; PULSE 63–67; RESP 18–20; TEMP 96.6–98.3; O2SAT 92–95
[2024-12-27] MEDS: MORPHINE SULFATE INJ 2 MG/ml SYRG IV PRN (00:33)
[2024-12-27 05:40] LABS: Hematocrit 39.5 % (41.0-53.0); Hemoglobin 14.0 g/dL (13.5-17.5); Mean Corpuscular Hemoglobin 33.4 pg (28.0-32.0); Mean Corpuscular Volume 94.2 fL (80.0-100.0); Nucleated Red Blood Cells % 0.1 %
[2024-12-27 06:03] LABS: Alanine Aminotransferase 12 U/L (7-40); Albumin 3.6 g/dL (3.2-4.8); Alkaline Phosphatase 82 U/L (46-116); Anion Gap 5 (5-15); BUN/Creatinine Ratio 14.4 (10.0-20.0); Bilirubin, Total 0.7 mg/dL (0.2-1.0); Blood Urea Nitrogen 15 mg/dL (9-23); Calcium 8.6 mg/dL (8.7-10.4); Carbon Dioxide 28 mmol/L (20-31); Chloride 109 mmol/L (98-107); Glucose 83 mg/dL (74-106); Potassium 4.1 mmol/L (3.5-5.1); Sodium 142 mmol/L (136-145); Total Protein 5.4 g/dL (5.7-8.2)
--- NOTE | 2024-12-27 11:25 | DVHPN2 ---
Subjective Patient is seen and examined at bedside. Still complain of severe back pain Reviewed: Care Plan, H&P, Labs, Medications, Previous Orders, Radiology Changes from previous H/P or p: No Changes Eyes: No Pain, No Vision change, No Conjunctivae inflammation, No Eyelid inflammation, No Other, No Redness ENT: No Ear pain, No Ear discharge, No Nose pain, No Nose discharge, No Nose congestion, No Mouth pain, No Mouth swelling, No Throat pain, No Throat swelling, No Other Cardiovascular: No Chest Pain, No Palpitations, No Orthopnea, No Paroxysmal Noc. Dyspnea, No Edema, No Lt Headedness, No Other Respiratory: No Cough, No Dry, No Shortness of breath, No SOB with excertion, No Wheezing, No Hemoptysis, No Pleuritic Pain, No Sputum, No Other Gastrointestinal: Nausea, Vomiting, Abdominal Pain; No Diarrhea, No Constipation, No Melena, No Hematochezia, No Other Genitourinary: Dysuria; No Frequency, No Incontinence, No Hematuria, No Retention; Other (Flank pain) Musculoskeletal: No other, No neck pain, No shoulder pain, No arm pain, No back pain, No hand pain, No leg pain, No foot pain Skin: No Rash, No Lesions, No Jaundice, No Bruising, No Other Objective Vitals Vital Signs Date Time Temp Pulse Resp B/P (MAP) Pulse Ox O2 Delivery O2 Flow Rate FiO2 12/27/24 08:26 97.9 66 20 101/61 (74) 92 97.9 12/27/24 07:43 Room Air* 0 21 Intake/Output Intake and Output 12/27/24 07:00 Intake Total 1840 ml Balance 1840 ml Intake Oral 1840 ml # Voids 7 General Appearance: Alert, Oriented X3, Cooperative, No acute distress HEENT: Atraumatic, PERRLA, EOMI, Mucous membr. moist/pink Neck: Supple Lungs: Clear to auscultation, Normal air movement Cardiovascular: Regular rate, Normal S1, Normal S2, No murmurs, Gallops, Rubs Neuro: Cranial nerves 3-12 NL Lymph: Lymphadenopathy Medications Current Medications Medications Dose Ordered Sig/Steve Route Start Time Stop Time Status Last Admin Dose Admin Sodium Chloride 10 ml Q8HR IV 12/26/24 14:00 12/27/24 08:48 10 ML Ondansetron HCl 4 mg Q4HP PRN IV 12/26/24 07:00 12/26/24 14:50 4 MG Docusate Sodium 100 mg BIDPRN PRN PO 12/26/24 07:00 Acetaminophen 650 mg Q6HP PRN PO 12/26/24 07:00 Morphine Sulfate 2 mg Q4HPRN PRN IV 12/26/24 07:00 12/27/24 00:33 2 MG Nitroglycerin 0.4 mg Q5MINP PRN SL 12/26/24 07:00 Morphine Sulfate 2 mg Q30M PRN IV 12/26/24 07:00 Sodium Chloride 1,000 ml @ 75 mls/hr [id number] IV 12/26/24 18:15 12/26/24 19:34 75 MLS/HR Nicotine 1 patch DAILY TD 12/26/24 21:00 12/27/24 09:20 1 PATCH Albuterol 2.5 mg Q4HPRN PRN NEB 12/26/24 21:45 Laboratory Results Laboratory Tests 12/27/24 05:01 Chemistry Test 12/27/24 05:01 Albumin 3.6 g/dL (3.2-4.8) Calcium Level 8.6 mg/dL (8.7-10.4) L Total Protein 5.4 g/dL (5.7-8.2) L LFT Test 12/27/24 05:01 Alanine Aminotransferase (ALT) 12 U/L (7-40) Alkaline Phosphatase 82 U/L (46-116) Aspartate Amino Transferase (AST) 20 U/L (13-40) Total Bilirubin 0.7 mg/dL (0.2-1.0) Urinalysis Test 12/26/24 01:18 Urine Color Yellow (Yellow) Urine Clarity Clear (Clear) Urine pH 5.5 (5.0-9.0) Urine Specific [place] 1.023 (1.001-1.035) Urine Protein 1+ (Negative) H Urine Ketones Negative (Negative) Urine Blood 1+ /uL (Negative) H Urine Nitrite Negative (Negative) Urine Bilirubin Negative (Negative) Urine Urobilinogen Normal mg/dL (Negative) Urine Leukocyte Esterase Negative /uL (Negative) Urine RBC 11 /hpf (0 - 3) Urine Microscopic WBC 5 /HPF (0-3) H Urine Squamous Epithelial Cells Few /hpf (<5) Urine Bacteria None seen /hpf (None Seen) Urine Mucus Few (None Seen) Urine Glucose Normal mg/dL (Normal) Labs and/or images reviewed: Labs reviewed by me Assessment/Plan Assessment/Plan Abdominal pain Ureter colic Hydronephrosis Ureteral calculus, left Acute renal injury Generalized weakness Continuing current management. Continuing with pain medication. Continuing with IV fluid. We will monitor the Kidney stone. Appreciate Urology input. This medical document was created using an electronic medical record system with [employer] direct computerized dictation system. Although this document has been carefully reviewed, there may still be some phonetic and typographical errors. These areas are purely typographical due to imperfections of the software programs, and do not reflect any compromise in the patient's medical care. Plan discussed with: Patient Date of Service: Dec 27, 2024 Billing Provider: PAPITO MENDOZA MD Common Visit Codes: [id number] INP/OBS CARE(HIGH) PAPITO MENDOZA MD Dec 27, 2024 11:25
[2024-12-28] VITALS (10 sets, daily range): BP systolic 109–119; BP diastolic 68–80; PULSE 53–68; RESP 16–20; TEMP 96.9–97.9; O2SAT 94–96
--- NOTE | 2024-12-28 12:49 | DVHPN2 ---
Subjective Patient is seen and examined at bedside. Still complain of severe back pain. Per patient he did not pass any stone however nursing brought to me that he pass a little stone. Reviewed: Care Plan, H&P, Labs, Medications, Previous Orders, Radiology Changes from previous H/P or p: No Changes Eyes: No Pain, No Vision change, No Conjunctivae inflammation, No Eyelid inflammation, No Other, No Redness ENT: No Ear pain, No Ear discharge, No Nose pain, No Nose discharge, No Nose congestion, No Mouth pain, No Mouth swelling, No Throat pain, No Throat swelling, No Other Cardiovascular: No Chest Pain, No Palpitations, No Orthopnea, No Paroxysmal Noc. Dyspnea, No Edema, No Lt Headedness, No Other Respiratory: No Cough, No Dry, No Shortness of breath, No SOB with excertion, No Wheezing, No Hemoptysis, No Pleuritic Pain, No Sputum, No Other Gastrointestinal: Nausea, Vomiting, Abdominal Pain; No Diarrhea, No Constipation, No Melena, No Hematochezia, No Other Genitourinary: Dysuria; No Frequency, No Incontinence, No Hematuria, No Retention; Other (Flank pain) Musculoskeletal: No other, No neck pain, No shoulder pain, No arm pain, No back pain, No hand pain, No leg pain, No foot pain Skin: No Rash, No Lesions, No Jaundice, No Bruising, No Other Objective Vitals Vital Signs Date Time Temp Pulse Resp B/P (MAP) Pulse Ox O2 Delivery O2 Flow Rate FiO2 12/28/24 12:33 97.6 53 16 109/80 (90) 96 97.6 12/28/24 10:00 Room Air* 0 21 Intake/Output Intake and Output 12/28/24 07:00 Intake Total 1900 ml Balance 1900 ml Intake Oral 1900 ml # Voids 6 General Appearance: Alert, Oriented X3, Cooperative, No acute distress HEENT: Atraumatic, PERRLA, EOMI, Mucous membr. moist/pink Neck: Supple Lungs: Clear to auscultation, Normal air movement Cardiovascular: Regular rate, Normal S1, Normal S2, No murmurs, Gallops, Rubs Neuro: Cranial nerves 3-12 NL Lymph: Lymphadenopathy Medications Current Medications Medications Dose Ordered Sig/Steve Route Start Time Stop Time Status Last Admin Dose Admin Sodium Chloride 10 ml Q8HR IV 12/26/24 14:00 12/28/24 06:00 10 ML Ondansetron HCl 4 mg Q4HP PRN IV 12/26/24 07:00 12/26/24 14:50 4 MG Docusate Sodium 100 mg BIDPRN PRN PO 12/26/24 07:00 Acetaminophen 650 mg Q6HP PRN PO 12/26/24 07:00 Morphine Sulfate 2 mg Q4HPRN PRN IV 12/26/24 07:00 12/28/24 09:27 2 MG Nitroglycerin 0.4 mg Q5MINP PRN SL 12/26/24 07:00 Morphine Sulfate 2 mg Q30M PRN IV 12/26/24 07:00 Sodium Chloride 1,000 ml @ 75 mls/hr [id number] IV 12/26/24 18:15 12/26/24 19:34 75 MLS/HR Nicotine 1 patch DAILY TD 12/26/24 21:00 12/28/24 09:15 1 PATCH Albuterol 2.5 mg Q4HPRN PRN NEB 12/26/24 21:45 Laboratory Results Laboratory Tests 12/27/24 05:01 Urinalysis Test 12/26/24 01:18 Urine Color Yellow (Yellow) Urine Clarity Clear (Clear) Urine pH 5.5 (5.0-9.0) Urine Specific [place] 1.023 (1.001-1.035) Urine Protein 1+ (Negative) H Urine Ketones Negative (Negative) Urine Blood 1+ /uL (Negative) H Urine Nitrite Negative (Negative) Urine Bilirubin Negative (Negative) Urine Urobilinogen Normal mg/dL (Negative) Urine Leukocyte Esterase Negative /uL (Negative) Urine RBC 11 /hpf (0 - 3) Urine Microscopic WBC 5 /HPF (0-3) H Urine Squamous Epithelial Cells Few /hpf (<5) Urine Bacteria None seen /hpf (None Seen) Urine Mucus Few (None Seen) Urine Glucose Normal mg/dL (Normal) Labs and/or images reviewed: Labs reviewed by me Assessment/Plan Assessment/Plan Abdominal pain Ureter colic Hydronephrosis Ureteral calculus, left Acute renal injury Generalized weakness Continuing current management. Continuing with pain medication. Continuing with IV fluid. We will monitor the Kidney stone. Appreciate Urology input. We will send the sample to tests to see if this a kidney stone. Discharge planing This medical document was created using an electronic medical record system with [employer] direct computerized dictation system. Although this document has been carefully reviewed, there may still be some phonetic and typographical errors. These areas are purely typographical due to imperfections of the software programs, and do not reflect any compromise in the patient's medical care. Plan discussed with: Patient, Other (RN) Date of Service: Dec 28, 2024 Billing Provider: PAPITO MENDOZA MD Common Visit Codes: [id number] INP/OBS CARE(HIGH) PAPITO MENDOZA MD Dec 28, 2024 12:49
[2024-12-29] VITALS (8 sets, daily range): BP systolic 108–125; BP diastolic 56–87; PULSE 53–82; RESP 18–19; TEMP 96.7–98.2; O2SAT 93–99
--- NOTE | 2024-12-29 11:29 | DVHDS2 ---
Discharge Summary Date of Admission Dec 26, 2024 at 06:51 Date of Discharge: Dec 29, 2024 Admitting Diagnosis Abdominal pain Ureter colic Hydronephrosis Ureteral calculus, left Acute renal injury Generalized weakness Labs/Diagnostic Data: Laboratory Results Test 12/28/24 15:30 12/27/24 05:01 12/26/24 01:18 12/26/24 00:44 White Blood Count 5.5 10^3/uL (4.4-10.8) Red Blood Count 4.20 10^6/uL (4.5-5.90) Hemoglobin 14.0 g/dL (13.5-17.5) Hematocrit 39.5 % (41.0-53.0) Mean Corpuscular Volume 94.2 fL (80.0-100.0) Mean Corpuscular Hemoglobin 33.4 pg (28.0-32.0) Mean Corpuscular Hemoglobin Concent 35.5 g/dL (32.0-36.0) Red Cell Distribution Width 13.4 % (11.8-14.3) Platelet Count 144 10^3/uL (140-450) Mean Platelet Volume 7.3 fL (6.9-10.8) Neutrophils (%) (Auto) 61.0 % (37.0-80.0) Lymphocytes (%) (Auto) 23.6 % (10.0-50.0) Monocytes (%) (Auto) 11.1 % (0.0-12.0) Eosinophils (%) (Auto) 3.8 % (0.0-7.0) Basophils (%) (Auto) 0.5 % (0.0-2.0) Neutrophils # (Auto) 3.4 10 ^3/uL (1.6-8.6) Lymphocytes # (Auto) 1.3 10 ^3/uL (0.4-5.4) Monocytes # (Auto) 0.6 10 ^3/uL (0-1.3) Eosinophils # (Auto) 0.2 10 ^3/uL (0-0.8) Basophils # (Auto) 0 10 ^3/uL (0-0.2) Nucleated Red Blood Cells 0.1 % Sodium Level 142 mmol/L (136-145) Potassium Level 4.1 mmol/L (3.5-5.1) Chloride Level 109 mmol/L (98-107) Carbon Dioxide Level 28 mmol/L (20-31) Anion Gap 5 (5-15) Blood Urea Nitrogen 15 mg/dL (9-23) Creatinine 1.04 mg/dL (0.700-1.30) Glomerular Filtration Rate Calc 80 mL/min (>90) BUN/Creatinine Ratio 14.4 (10.0-20.0) Serum Glucose 83 mg/dL (74-106) Calcium Level 8.6 mg/dL (8.7-10.4) Total Bilirubin 0.7 mg/dL (0.2-1.0) Aspartate Amino Transferase (AST) 20 U/L (13-40) Alanine Aminotransferase (ALT) 12 U/L (7-40) Alkaline Phosphatase 82 U/L (46-116) Total Protein 5.4 g/dL (5.7-8.2) Albumin 3.6 g/dL (3.2-4.8) Urine Color Yellow (Yellow) Urine Clarity Clear (Clear) Urine pH 5.5 (5.0-9.0) Urine Specific [place] 1.023 (1.001-1.035) Urine Protein 1+ (Negative) Urine Ketones Negative (Negative) Urine Blood 1+ /uL (Negative) Urine Nitrite Negative (Negative) Urine Bilirubin Negative (Negative) Urine Urobilinogen Normal mg/dL (Negative) Urine Leukocyte Esterase Negative /uL (Negative) Urine RBC 11 /hpf (0 - 3) Urine Microscopic WBC 5 /HPF (0-3) Urine Squamous Epithelial Cells Few /hpf (<5) Urine Bacteria None seen /hpf (None Seen) Urine Mucus Few (None Seen) Urine Glucose Normal mg/dL (Normal) Troponin I High Sensitivity < 3 ng/L (</=54) Test 12/25/24 23:51 Magnesium Level 2.0 mg/dL (1.6-2.6) Lipase 34 U/L (12-53) Other Laboratory Tests 12/27/24 05:01 Brief Hx & Hospital Course: This is a 64 years old male with past medical history of COPD came to emergency department because severe abdominal pain for two days. The patient reports pain on the left side of the abdomen and left flank pain radiating to his left lower quadrant. The pain associated with nausea, vomiting, and dysuria. Patient also complained of generalized weakness, diaphoresis and chest discomfort. The patient was found to have 2 mm of left distal ureteral calculus. Abdomen/pelvis CT revealing mild to moderate left hydronephrosis and hydroureter secondary to 2 mm left distal ureteral calculus. Chest x-ray revealing mild persistent bilateral perihilar pulmonary infiltrates. Patient was admitted. The patient was put on Flomax. Patient was put on IV fluid. Urology was consulted. Recommend pain control and IV fluid. Per nursing staff they found a sediment in his urine. This sent to the lab to see what type of stone the patient had. The patient's pain resolved . The patient did not come any nausea or vomiting or chest discomfort anymore. I did a KUB and it was not show any stone. I am going to discharge him home today. Advised him to follow up with primary care physician 1-2 weeks. Follow up with urologist if he continuing to have pain and if imaging still showed stone. Activity as tolerated. Diet per home diet. Recommend low protein low-salt diet and drink plenty of water to avoid dehydration and kidney stone forming. Physical exam: HEENT: Normocephalic atraumatic pupils equal react to light and accommodation. Extraocular muscles intact, conjunctiva pink, oropharynx moist, no thrush, no exudate. Lymphatic: No lymphadenopathy Cardiovascular exam: S1, S2 was heard. No murmurs, rubs, gallops Lung: Clear on auscultation bilaterally, no wheeze, rale, rhonchi. GI: Abdominal soft, nondistended, nontenderness, positive bowel sounds. Extremity: No crepitus, cyanosis, edema. Pedal pulses present bilateral. Full range of motion. Skin: Normal turgor, no rash. Psych: Alert, oriented x3. Neurology: No focal deficits, cranial nerve II to XII grossly intact. This medical document was created using an electronic medical record system with [employer] direct computerized dictation system. Although this document has been carefully reviewed, there may still be some phonetic and typographical errors. These areas are purely typographical due to imperfections of the software programs, and do not reflect any compromise in the patient's medical care. Condition at Discharge: Stable Final Diagnosis/Problems List Abdominal pain Ureter colic Hydronephrosis Ureteral calculus, left Acute renal injury Generalized weakness Discharge Disposition: Home Discharge Instruct/Medications Scheduled Gabapentin (Gabapentin), 400 MG PO DAILY, (Reported) Methylprednisolone (Medrol Dosepak), 4 MG PO UD Tamsulosin Hcl (Flomax), 1 CAP PO DAILY Scheduled PRN Ibuprofen (Ibuprofen), 1 TAB PO TID PRN Miscellaneous Medications Albuterol Sulfate (Ventolin Mdi), 90 MCG IN, (Reported) Ufinaotqhnh-Hezwtshfilxh-Votdg (Trelegy Ellipta 100-62.5-25 Mcg/INH), 1 AER IN, (Reported) Discontinued Medications Levofloxacin Hemihydrate (Levofloxacin), 1 TAB PO DAILY Oseltamivir Phosphate (Tamiflu), 75 MG PO Q12HR Discharge Statement: "Patient was advised to return to the ER or call 911 if any headaches, dizziness, shortness of breath, chest pain, abdominal pain, bleeding, fevers, or worsening of medical condition. Patient was counseled about treatment plan, medications, possible side effects, patientverbalized understanding. All questions were answered to the best of my ability. This discharge took greater then 30 minutes in planning, reviewing documentation, counseling the patient, and discussing with other team members." ASSESSMENT ASSESSMENT Assessment Date of Service: Dec 29, 2024 Billing Provider: PAPITO MENDOZA MD Common Visit Codes: [id number]-LQJ/OBS DISCH DAY >30min PAPITO MENDOZA MD Dec 29, 2024 11:29
--- NOTE | 2024-12-29 11:30 | DVHPN2 ---
Subjective Patient is seen and examined at bedside. Still complain of severe back pain. Per patient he did not pass any stone however nursing brought to me that he pass a little stone. Reviewed: Care Plan, H&P, Labs, Medications, Previous Orders, Radiology Eyes: No Pain, No Vision change, No Conjunctivae inflammation, No Eyelid inflammation, No Other, No Redness ENT: No Ear pain, No Ear discharge, No Nose pain, No Nose discharge, No Nose congestion, No Mouth pain, No Mouth swelling, No Throat pain, No Throat swelling, No Other Cardiovascular: No Chest Pain, No Palpitations, No Orthopnea, No Paroxysmal Noc. Dyspnea, No Edema, No Lt Headedness, No Other Respiratory: No Cough, No Dry, No Shortness of breath, No SOB with excertion, No Wheezing, No Hemoptysis, No Pleuritic Pain, No Sputum, No Other Gastrointestinal: Nausea, Vomiting, Abdominal Pain; No Diarrhea, No Constipation, No Melena, No Hematochezia, No Other Genitourinary: Dysuria; No Frequency, No Incontinence, No Hematuria, No Retention; Other (Flank pain) Musculoskeletal: No other, No neck pain, No shoulder pain, No arm pain, No back pain, No hand pain, No leg pain, No foot pain Skin: No Rash, No Lesions, No Jaundice, No Bruising, No Other Objective Vitals Vital Signs Date Time Temp Pulse Resp B/P (MAP) Pulse Ox O2 Delivery O2 Flow Rate FiO2 12/29/24 09:33 96 Room Air 0.0 12/29/24 09:33 21 12/29/24 09:00 98.1 62 19 123/87 (99) 98.1 Intake/Output Intake and Output 12/29/24 07:00 Intake Total 1250 ml Balance 1250 ml Intake Oral 1250 ml # Voids 12 # Bowel Movements 1 General Appearance: Alert, Oriented X3, Cooperative, No acute distress HEENT: Atraumatic, PERRLA, EOMI, Mucous membr. moist/pink Neck: Supple Lungs: Clear to auscultation, Normal air movement Cardiovascular: Regular rate, Normal S1, Normal S2, No murmurs, Gallops, Rubs Neuro: Cranial nerves 3-12 NL Lymph: Lymphadenopathy Medications Current Medications Medications Dose Ordered Sig/Tseve Route Start Time Stop Time Status Last Admin Dose Admin Sodium Chloride 10 ml Q8HR IV 12/26/24 14:00 12/29/24 06:52 10 ML Ondansetron HCl 4 mg Q4HP PRN IV 12/26/24 07:00 12/26/24 14:50 4 MG Docusate Sodium 100 mg BIDPRN PRN PO 12/26/24 07:00 Acetaminophen 650 mg Q6HP PRN PO 12/26/24 07:00 Morphine Sulfate 2 mg Q4HPRN PRN IV 12/26/24 07:00 12/28/24 09:27 2 MG Nitroglycerin 0.4 mg Q5MINP PRN SL 12/26/24 07:00 Morphine Sulfate 2 mg Q30M PRN IV 12/26/24 07:00 Sodium Chloride 1,000 ml @ 75 mls/hr [id number] IV 12/26/24 18:15 12/28/24 23:35 75 MLS/HR Nicotine 1 patch DAILY TD 12/26/24 21:00 12/29/24 09:33 1 PATCH Albuterol 2.5 mg Q4HPRN PRN NEB 12/26/24 21:45 Laboratory Results Laboratory Tests 12/27/24 05:01 Urinalysis Test 12/26/24 01:18 Urine Color Yellow (Yellow) Urine Clarity Clear (Clear) Urine pH 5.5 (5.0-9.0) Urine Specific [place] 1.023 (1.001-1.035) Urine Protein 1+ (Negative) H Urine Ketones Negative (Negative) Urine Blood 1+ /uL (Negative) H Urine Nitrite Negative (Negative) Urine Bilirubin Negative (Negative) Urine Urobilinogen Normal mg/dL (Negative) Urine Leukocyte Esterase Negative /uL (Negative) Urine RBC 11 /hpf (0 - 3) Urine Microscopic WBC 5 /HPF (0-3) H Urine Squamous Epithelial Cells Few /hpf (<5) Urine Bacteria None seen /hpf (None Seen) Urine Mucus Few (None Seen) Urine Glucose Normal mg/dL (Normal) Assessment/Plan Assessment/Plan Abdominal pain Ureter colic Hydronephrosis Ureteral calculus, left Acute renal injury Generalized weakness Continuing current management. Continuing with pain medication. Continuing with IV fluid. We will monitor the Kidney stone. Appreciate Urology input. We will send the sample to tests to see if this a kidney stone. Discharge planing This medical document was created using an electronic medical record system with [employer] direct computerized dictation system. Although this document has been carefully reviewed, there may still be some phonetic and typographical errors. These areas are purely typographical due to imperfections of the software programs, and do not reflect any compromise in the patient's medical care. My Orders Orders - PAPITO MENDOZA MD Procedure Category Date Status Time Stone Analysis Urinary LAB 12/28/24 In Process 15:22 Kub Abdomen Single XY 12/29/24 Logged View 11:28 PAPITO MENDOZA MD Dec 29, 2024 11:30
[2024-12-29] MEDS ORDERED: IBUP-1454 PO (11:34)
[2024-12-29] MEDS ORDERED: TAMS-35 PO (11:34)
--- NOTE | 2024-12-29 12:46 | DVH ---
Exam: XY KUB ABDOMEN SINGLE VIEW Indication: follow up kidney stone Comparison: CT scan of the abdomen and pelvis dated 12/26/2024. Technique: Supine AP view of the abdomen was performed. Findings: No abnormal bowel dilatation. Gas is present throughout the colon. There is fecal retention throughou t the colon. No abnormal calcifications overlying the kidneys. The area of the urinary bladder and di stal ureters is not imaged here. There is advanced lumbar degenerative disc disease. Impression: 1. No evidence of bowel obstruction. 2. Fecal retention in the colon suggestive of constipation. 3. It is uncertain if the left distal ureteral 2 mm calculus seen previously remains in similar posit ion as that seen on the prior CT scan, as the pelvis was not fully imaged here. 4. Advanced lumbar degenerative disc disease.
== END 2024-12-29 13:51 | disposition home or self-care (01) | DRG 694 ==
LOC: ER 23:13 → OVERFLOW 12-26 06:51 → WEST WING 12-26 17:16
PROVIDERS: ADMIT Internal Medicine; ATTEND Internal Medicine
DX: N13.2 Hydronephrosis with renal and ureteral calculous obstruction (principal); N17.9 Acute kidney failure, unspecified; J44.9 Chronic obstructive pulmonary disease, unspecified; F17.210 Nicotine dependence, cigarettes, uncomplicated; Z88.5 Allergy status to narcotic agent; Z79.899 Other long term (current) drug therapy
CPT/HCPCS: 36415; 71045; 74018; 74177; 80053; 81001; 82360; 83690; 83735; 84484; 85025; 96374; 96375; G0378; J2405